=== PATIENT | female | born 1955 | race Caucasian/White ===

== ENCOUNTER 2022-09-28 14:54 | Outpatient (REF) | payer MEDICARE, SELFPAY | END 2022-09-28 14:55 | disposition home or self-care (01) | LOC: HO.LAB 14:54 | PROVIDERS: PCP Internal Medicine; Visit Provider Hospitalist | DX: Z23 Encounter for immunization (principal); J18.9 Pneumonia, unspecified organism; J45.909 Unspecified asthma, uncomplicated; Z91.09 Other allergy status, other than to drugs and biological substances | CPT/HCPCS: 36415; 82785; 86003; 90471; 90677; 99202 ==

== ENCOUNTER 2022-12-22 | Outpatient (REF) | payer MEDICARE, SELFPAY ==
--- NOTE | 2022-12-22 14:15 | PFT_ITS ---
INDICATION: Asthma and pneumonia. SPIROMETRY: The FEV1 to FVC 87% with an FEV1 of 2.69 L which is 103% predicted with an FVC of 3.08 L which is 90% predicted. No significant response to bronchodilators noted. Maximum voluntary ventilation 86% predicted. LUNG VOLUMES: Total lung capacity 124% predicted with residual volume of 165% predicted. DIFFUSION CAPACITY: DLCO of 87% predicted. COMPARISONS: None. INTERPRETATION: No obstructive nor restrictive ventilatory defects have been identified. No significant response to bronchodilators noted. Normal maximum voluntary ventilation. Lung volumes do demonstrate a trend of hyperinflation and significant air trapping, which could be secondary to small airway disease. Diffusion capacity is within normal limits. If asthma is in the differential, methacholine challenge may be helpful in assessing for hyperreactive airways disease. Otherwise, clinical correlation warranted. MD KRISH Cano/MODL / [id number]
== END 2022-12-22 00:01 | disposition home or self-care (01) ==
LOC: HO.RESP
PROVIDERS: PCP Internal Medicine; Visit Provider Hospitalist
DX: J18.9 Pneumonia, unspecified organism (principal)
CPT/HCPCS: 94060; 94727; 94729

== ENCOUNTER → 2023-01-01 09:33 | Outpatient (BNVA) | payer MEDICARE, SELFPAY | PROVIDERS: PCP Internal Medicine; Visit Provider Hospitalist | DX: J45.909 Unspecified asthma, uncomplicated (principal); J18.9 Pneumonia, unspecified organism | CPT/HCPCS: 99212 ==

== ENCOUNTER 2024-11-12 10:04 | Outpatient (REF) | payer MEDICARE, SELFPAY ==
--- OUTSIDE RECORDS SUMMARY | 2024-11-12 11:00 | XMS_ITS | Data Portability ---
Author Organization [facility], Main Office Address [address] [facility] [address] [place] [id number] Care Team Providers Care Roll Tension Tester Name Role Phone EDILIA LIMON OTHER JASEN RODRIGUEZ Dairy Husbandry Worker RONALD MOSELEY Ammonia Print Operator YANIRA JO Primary Care Provider NEENA CHAPIN Process Description Writer VIC TILLEY Shirt Presser Assessment No assessment recorded. Plan of Treatment Reminders Order Date Submit Date Provider Last Modified By Organization Details Last Modified Time Details Appointments FOLLOW UP 2024 01:30P M YANIRA JO MD Not available Not available Not available Lab Hepatitis C IgG Ab, qual, serum 2024 025 ISAIAH [facility] (Centralized Electronic Ordering - All Locations), Patient Can Go To The Location Of Their Choice, [id number] 11/07/2024 15:06:09 lipid panel, serum 2024 025 ISAIAH [facility], [address] [place], [address], 11/07/2024 14:41:46 BMP, serum or plasma 2024 025 ISAIAH [facility], [address] [place], [address], 11/07/2024 14:41:46 CBC w/ auto diff 2024 025 ISAIAH [facility], [address] [place], [address], 11/07/2024 14:41:46 hepatic function panel, serum 2023 024 ISAIAH [facility] (Centralized Electronic Ordering - All Locations), Patient Can Go To The Location Of Their Choice, [id number] 05/12/2024 09:32:38 BMP, serum or plasma 2023 024 ISAIAH [facility] (Centralized Electronic Ordering - All Locations), Patient Can Go To The Location Of Their Choice, [address] 05/12/2024 09:32:38 lipid panel, serum 2023 024 ISAIAH [facility], [address] [place] [address], [facility], [place], [address], 09/19/2023 06:08:53 CBC w/ auto diff 2023 024 ISAIAH [facility], [address] [place] [address], [facility], [place], [address], 09/19/2023 06:08:52 BMP, serum or plasma 2023 024 [facility], [address] [place] [address], [facility], [place], [address], 08/24/2023 11:49:40 TSH, serum or plasma 2023 024 [facility], [address] [place] [address], [facility], [place], [address], 08/24/2023 11:49:40 Referral nutrition ist/dieti laila referral 2024 025 carol [employer], [address] [place], [facility], [place], [address], 11/07/2024 14:52:[address] referral - long-damaris ding tinnitus 2024 025 LANA [facility], [address] [place] [address] [place], [address], 10/03/2024 13:29:56 otolaryng ologist referral - worsening tinnitus 2024 025 [facility] , [address], [address], [place], [address], 10/03/2024 13:24:08 Procedures None recorded. Surgeries None recorded. Imaging MRI, brain + internal auditory canal, w/wo contrast - ringing on the right side of the ear 2024 025 ISAIAH Not available 10/20/2024 09:25:20 US, thyroid 2023 024 [facility] (Ultrasound), [address] [place], [address], 02/04/2024 20:32:55 bone density 2023 024 [facility], [address] [place], [address], 09/27/2023 12:01:28 Medication Orders Zyrtec 10 mg capsule 2024 025 [facility], [address] [place], [address], 10/20/2024 05:01:08 Flonase Allergy Relief 50 mcg/actua tion nasal spray,maura pension 2024 025 [facility], [address] [place], [address], 10/20/2024 05:01:08 Patient TargetsNo targets recorded. Patient Instructions Encounter Date Encounter Id Patient Instructions Last Modified By Organization Details Last Modified Time 08/24/2023 [id number] advance care planning: care instructions Not available 08/24/2023 11:49:39 well visit, over 65: care instructions Not available 08/24/2023 11:49:39 preventing falls : care instructions Not available 08/24/2023 11:49:39 medical record request* [email or web address] Not available 08/24/2023 11:58:12 starting a weigh t loss plan: care instructions Not available 08/24/2023 11:49:44 10/03/2024 [id number] tinnitus: care instructions Not available 10/03/2024 11:00:35 11/07/2024 [id number] advance care planning: care instructions Not available 11/07/2024 14:41:31 Reason for Referral Excellence Manager Referral for Tin nitus long-standing tinnitus Referring Physician: Yanira Jo [facility], Encounter Date: 10/03/2024 Nut Sorter Referral fo r Tinnitus worsening tinnitus Referring Physician: Yanira Jo [facility], Encounter Date: 10/03/2024 Course Instructor/dietitian Refer ral for Obesity caused by energy imbalance Referring Physician: Yanira Jo [facility], Encounter Date: 11/07/2024 Results Created Date Observation Date Name Description Value Unit Range Abnormal Flag Note LastModifiedBy Organization Detail LastModifiedTime 09/18/19 24 09/19/2023 BMP8+ EGFR glucose 109 mg/dL 70-99 above high normal Not Available [facility] ([facility]) [address] [place], [address], 09/19/2023 06:08:51 09/18/19 24 09/19/2023 BMP8+ EGFR BUN 12 mg/dL 8-27 Not Available [facility] ([facility]) [address] [place], [address], 09/19/2023 06:08:51 09/18/19 24 09/19/2023 BMP8+ EGFR creatinine 0.81 mg/dL 0.57-1 .00 Not Available [facility] ([facility]) [address] [place], [address], 09/19/2023 06:08:51 09/18/19 24 09/19/2023 BMP8+ EGFR eGFR 80 mL/mi n/1.7 3 >59 Not Available [facility] ([facility]) [address] [place], [address], 09/19/2023 06:08:51 09/18/19 24 09/19/2023 BMP8+ EGFR BUN/creatini ne ratio 15 12-28 Not Available [facility] ([facility]) [address] [facility], [place], [address], 09/19/2023 06:08:51 09/18/19 24 09/19/2023 BMP8+ EGFR sodium 139 mmol/ L 134-14 4 Not Available [facility] ([facility]) [address] [facility], [place], [address], 09/19/2023 06:08:51 09/18/19 24 09/19/2023 BMP8+ EGFR potassium 4.1 mmol/ L 3.5-5. 2 Not Available [facility] ([facility]) [address] [place], [address], 09/19/2023 06:08:51 09/18/19 24 09/19/2023 BMP8+ EGFR chloride 102 mmol/ L 96-106 Not Available [facility] ([facility]) [address] [facility], [place], [address], 09/19/2023 06:08:51 09/18/19 24 09/19/2023 BMP8+ EGFR carbon dioxide, total 22 mmol/ L 20-29 Not Available [facility] ([facility]) [address] [place], [address], 09/19/2023 06:08:51 09/18/19 24 09/19/2023 BMP8+ EGFR anion gap 15.0 mmol/ L 10.0-1 8.0 Not Available [facility] ([facility]) [address] [place], [address], 09/19/2023 06:08:51 09/18/19 24 09/19/2023 BMP8+ EGFR calcium 9.5 mg/dL 8.7-10 .3 Not Available [facility] ([facility]) [address] [facility], [place], [address], 09/19/2023 06:08:51 09/18/19 24 09/19/2023 CBC WITH DIFFE RENTI AL/PL ATELE T WBC 12.6 x10e3 /uL 3.4-10 .8 above high normal Not Available [facility] ([facility]) [address] [facility], [place], [address], 09/19/2023 06:08:52 09/18/19 24 09/19/2023 CBC WITH DIFFE RENTI AL/PL ATELE T RBC 4.93 x10e6 /uL 3.77-5 .28 Not Available [facility] ([facility]) [address] [facility], [place], [address], 09/19/2023 06:08:52 09/18/19 24 09/19/2023 CBC WITH DIFFE RENTI AL/PL ATELE T hemoglobin 14.5 g/dL 11.1-1 5.9 Not Available [facility] ([facility]) [address] [facility], [place], [address], 09/19/2023 06:08:52 09/18/19 24 09/19/2023 CBC WITH DIFFE RENTI AL/PL ATELE T hematocrit 43.5 % 34.0-4 6.6 Not Available [facility] ([facility]) [address] [facility], [place], [address], 09/19/2023 06:08:52 09/18/19 24 09/19/2023 CBC WITH DIFFE RENTI AL/PL ATELE T MCV 88 fL 79-97 Not Available [facility] ([facility]) [address] [facility], [place], [address], 09/19/2023 06:08:52 03/19/20 24 09/19/2023 CBC WITH DIFFE RENTI AL/PL ATELE T MCH 29.4 pg 26.6-3 3.0 Not Available [facility] ([facility]) [address] [place], [address], 09/19/2023 06:08:52 09/18/19 24 09/19/2023 CBC WITH DIFFE RENTI AL/PL ATELE T MCHC 33.3 g/dL 31.5-3 5.7 Not Available [facility] ([facility]) [address] [place], [address], 09/19/2023 06:08:52 09/18/19 24 09/19/2023 CBC WITH DIFFE RENTI AL/PL ATELE T RDW 12.2 % 11.7-1 5.4 Not Available [facility] ([facility]) [address] [place], [address], 09/19/2023 06:08:52 09/18/19 24 09/19/2023 CBC WITH DIFFE RENTI AL/PL ATELE T platelets 266 x10e3 /uL 150-45 0 Not Available [facility] ([facility]) [address] [place], [address], 09/19/2023 06:08:52 09/18/19 24 09/19/2023 CBC WITH DIFFE RENTI AL/PL ATELE T neutrophils 66 % not estab. Not Available [facility] ([facility]) [address] [place], [address], 09/19/2023 06:08:52 09/18/19 24 09/19/2023 CBC WITH DIFFE RENTI AL/PL ATELE T lymphs 22 % not estab. Not Available [facility] ([facility]) [address] [place], [address], 09/19/2023 06:08:52 09/18/19 24 09/19/2023 CBC WITH DIFFE RENTI AL/PL ATELE T monocytes 8 % not estab. Not Available [facility] ([facility]) [address] [place], [address], 09/19/2023 06:08:52 09/18/19 24 09/19/2023 CBC WITH DIFFE RENTI AL/PL ATELE T eos 2 % not estab. Not Available [facility] ([facility]) [address] [facility], [place], [address], 09/19/2023 06:08:52 09/18/19 24 09/19/2023 CBC WITH DIFFE RENTI AL/PL ATELE T basos 1 % not estab. Not Available [facility] ([facility]) [address] [facility], [place], [address], 09/19/2023 06:08:52 09/18/19 24 09/19/2023 CBC WITH DIFFE RENTI AL/PL ATELE T immature cells FISHER CLAM Not Available [facility] ([facility]) [address] [place], [address], 09/19/2023 06:08:52 09/18/19 24 09/19/2023 CBC WITH DIFFE RENTI AL/PL ATELE T neutrophils (absolute) 8.5 x10e3 /uL 1.4-7. 0 above high normal Not Available [facility] ([facility]) [address] [place], [address], 09/19/2023 06:08:52 09/18/19 24 09/19/2023 CBC WITH DIFFE RENTI AL/PL ATELE T lymphs (absolute) 2.7 x10e3 /uL 0.7-3. 1 Not Available [facility] ([facility]) [address] [place], [address], 09/19/2023 06:08:52 09/18/19 24 09/19/2023 CBC WITH DIFFE RENTI AL/PL ATELE T monocytes(ab solute) 1.0 x10e3 /uL 0.1-0. 9 above high normal Not Available [facility] ([facility]) [address] [facility], [place], [address], 09/19/2023 06:08:52 09/18/19 24 09/19/2023 CBC WITH DIFFE RENTI AL/PL ATELE T eos (absolute) 0.2 x10e3 /uL 0.0-0. 4 Not Available [facility] ([facility]) [address] [facility], [place], [address], 09/19/2023 06:08:52 09/18/19 24 09/19/2023 CBC WITH DIFFE RENTI AL/PL ATELE T baso (absolute) 0.1 x10e3 /uL 0.0-0. 2 Not Available [facility] ([facility]) [address] [facility], [place], [address], 09/19/2023 06:08:52 09/18/19 24 09/19/2023 CBC WITH DIFFE RENTI AL/PL ATELE T immature granulocytes 1 % not estab. Not Available [facility] ([facility]) [address] [facility], [place], [address], 09/19/2023 06:08:52 09/18/19 24 09/19/2023 CBC WITH DIFFE RENTI AL/PL ATELE T immature grans (abs) 0.1 x10e3 /uL 0.0-0. 1 Not Available [facility] ([facility]) [address] [place], [address], 09/19/2023 06:08:52 09/18/19 24 09/19/2023 CBC WITH DIFFE RENTI AL/PL ATELE T NRBC FISHER CLAM Not Available [facility] ([facility]) [address] [facility], [place], [address], 09/19/2023 06:08:52 09/18/19 24 09/19/2023 CBC WITH DIFFE RENTI AL/PL ATELE T hematology comments: FISHER CLAM Not Available [facility] ([facility]) [address] [facility], [place], [address], 09/19/2023 06:08:52 09/18/19 24 09/19/2023 LP+NO N-HDL SHAHID STERO L cholesterol, total 154 mg/dL 100-19 9 Not Available [facility] ([facility]) [address] [facility], [place], [address], 09/19/2023 06:08:53 09/18/19 24 09/19/2023 LP+NO N-HDL SHAHID STERO L triglyceride s 145 mg/dL 0-149 Not Available [facility] ([facility]) [address] [facility], [place], [address], 09/19/2023 06:08:53 09/18/19 24 09/19/2023 LP+NO N-HDL SHAHID STERO L HDL cholesterol 41 mg/dL >39 Not Available [facility] ([facility]) [address] [facility], [place], [address], 09/19/2023 06:08:53 09/18/19 24 09/19/2023 LP+NO N-HDL SHAHID STERO L VLDL cholesterol annabel 26 mg/dL 5-40 Not Available [facility] ([facility]) [address] [facility], [place], [address], 09/19/2023 06:08:53 09/18/19 24 09/19/2023 LP+NO N-HDL SHAHID STERO L LDL chol calc ([facility]) 87 mg/dL 0-99 Not Available [facility] ([facility]) [address] [place], [address], 09/19/2023 06:08:53 09/18/19 24 09/19/2023 LP+NO N-HDL SHAHID STERO L non-HDL cholesterol 113 mg/dL 0-129 Not Available [facility] ([facility]) [address] [facility] [place], [address], 09/19/2023 06:08:53 09/18/19 24 09/19/2023 LP+NO N-HDL SHAHID STERO L comment: FISHER CLAM Not Available [facility] ([facility]) [address] [facility] [place], [address], 09/19/2023 06:08:53 09/18/19 24 09/19/2023 TSH REFLE X TO T4F TSH <0.005 uIU/m L 0.450- 4.500 below low normal Not Available [facility] ([facility]) [address] [facility] [place], [address], 09/19/2023 06:08:53 09/21/19 24 09/22/2023 TSH+F REE T4 TSH <0.005 uIU/m L 0.450- 4.500 below low normal Not Available [facility] ([facility]) [address] [facility] [place], [address], 09/22/2023 08:09:00 09/21/19 24 09/22/2023 TSH+F REE T4 T4,free(dire ct) 1.88 NG/dL 0.82-1 .77 above high normal Not Available [facility] ([facility]) [address] [place], [address], 09/22/2023 08:09:00 09/21/19 24 09/22/2023 CBC WITH DIFFE RENTI AL/PL ATELE T WBC 8.2 x10e3 /uL 3.4-10 .8 Not Available [facility] ([facility]) [address] [facility] [place], [address], 09/22/2023 08:09:01 09/21/19 24 09/22/2023 CBC WITH DIFFE RENTI AL/PL ATELE T RBC 4.59 x10e6 /uL 3.77-5 .28 Not Available [facility] ([facility]) [address] [facility], [place], [address], 09/22/2023 08:09:01 09/21/19 24 09/22/2023 CBC WITH DIFFE RENTI AL/PL ATELE T hemoglobin 13.7 g/dL 11.1-1 5.9 Not Available [facility] ([facility]) [address] [facility], [place], [address], 09/22/2023 08:09:01 09/21/19 24 09/22/2023 CBC WITH DIFFE RENTI AL/PL ATELE T hematocrit 40.1 % 34.0-4 6.6 Not Available [facility] ([facility]) [address] [facility], [place], [address], 09/22/2023 08:09:01 09/21/19 24 09/22/2023 CBC WITH DIFFE RENTI AL/PL ATELE T MCV 87 fL 79-97 Not Available [facility] ([facility]) [address] [facility], [place], [address], 09/22/2023 08:09:01 09/21/19 24 09/22/2023 CBC WITH DIFFE RENTI AL/PL ATELE T MCH 29.8 pg 26.6-3 3.0 Not Available [facility] ([facility]) [address] [facility], [place], [address], 09/22/2023 08:09:01 09/21/19 24 09/22/2023 CBC WITH DIFFE RENTI AL/PL ATELE T MCHC 34.2 g/dL 31.5-3 5.7 Not Available [facility] ([facility]) [address] [facility], [place], [address], 09/22/2023 08:09:01 09/21/19 24 09/22/2023 CBC WITH DIFFE RENTI AL/PL ATELE T RDW 11.9 % 11.7-1 5.4 Not Available [facility] ([facility]) [address], [place], [address], 09/22/2023 08:09:01 09/21/19 24 09/22/2023 CBC WITH DIFFE RENTI AL/PL ATELE T platelets 276 x10e3 /uL 150-45 0 Not Available [facility] ([facility]) [address], [place], [address], 09/22/2023 08:09:01 09/21/19 24 09/22/2023 CBC WITH DIFFE RENTI AL/PL ATELE T neutrophils 53 % not estab. Not Available [facility] ([facility]) [address] [facility], [place], [address], 09/22/2023 08:09:01 09/21/19 24 09/22/2023 CBC WITH DIFFE RENTI AL/PL ATELE T lymphs 35 % not estab. Not Available [facility] ([facility]) [address] [facility], [place], [address], 09/22/2023 08:09:01 09/21/19 24 09/22/2023 CBC WITH DIFFE RENTI AL/PL ATELE T monocytes 8 % not estab. Not Available [facility] ([facility]) [address] [facility], [place], [address], 09/22/2023 08:09:01 09/21/19 24 09/22/2023 CBC WITH DIFFE RENTI AL/PL ATELE T eos 2 % not estab. Not Available [facility] ([facility]) [address] [facility], [place], [address], 09/22/2023 08:09:01 09/21/19 24 09/22/2023 CBC WITH DIFFE RENTI AL/PL ATELE T basos 1 % not estab. Not Available [facility] ([facility]) [address] [facility], [place], [address], 09/22/2023 08:09:01 09/21/19 24 09/22/2023 CBC WITH DIFFE RENTI AL/PL ATELE T immature cells FISHER CLAM Not Available [facility] ([facility]) [address] [place], [address], 09/22/2023 08:09:01 09/21/19 24 09/22/2023 CBC WITH DIFFE RENTI AL/PL ATELE T neutrophils (absolute) 4.3 x10e3 /uL 1.4-7. 0 Not Available [facility] ([facility]) [address] [place], [address], 09/22/2023 08:09:01 09/21/19 24 09/22/2023 CBC WITH DIFFE RENTI AL/PL ATELE T lymphs (absolute) 2.8 x10e3 /uL 0.7-3. 1 Not Available [facility] ([facility]) [address] [place], [address], 09/22/2023 08:09:01 09/21/19 24 09/22/2023 CBC WITH DIFFE RENTI AL/PL ATELE T monocytes(ab solute) 0.7 x10e3 /uL 0.1-0. 9 Not Available [facility] ([facility]) [address] [place], [address], 09/22/2023 08:09:01 09/21/19 24 09/22/2023 CBC WITH DIFFE RENTI AL/PL ATELE T eos (absolute) 0.2 x10e3 /uL 0.0-0. 4 Not Available [facility] ([facility]) [address] [place], [address], 09/22/2023 08:09:01 09/21/19 24 09/22/2023 CBC WITH DIFFE RENTI AL/PL ATELE T baso (absolute) 0.1 x10e3 /uL 0.0-0. 2 Not Available [facility] ([facility]) [address] [place], [address], 09/22/2023 08:09:01 09/21/19 24 09/22/2023 CBC WITH DIFFE RENTI AL/PL ATELE T immature granulocytes 1 % not estab. Not Available [facility] ([facility]) [address] [facility], [place], [address], 09/22/2023 08:09:01 09/21/19 24 09/22/2023 CBC WITH DIFFE RENTI AL/PL ATELE T immature grans (abs) 0.1 x10e3 /uL 0.0-0. 1 Not Available [facility] ([facility]) [address] [facility], [place], [address], 09/22/2023 08:09:01 09/21/19 24 09/22/2023 CBC WITH DIFFE RENTI AL/PL ATELE T NRBC FISHER CLAM Not Available [facility] ([facility]) [address] [facility], [place], [address], 09/22/2023 08:09:01 09/21/19 24 09/22/2023 CBC WITH DIFFE RENTI AL/PL ATELE T hematology comments: FISHER CLAM Not Available [facility] ([facility]) [address] [facility], [place], [address], 09/22/2023 08:09:01 09/21/19 24 09/22/2023 HEMOG LOBIN A1C hemoglobin A1C 5.4 % 4.8-5. 6 Predi abete s: 5.7 - 6.4 Diabe jessica: >6.4 Glyce rodrigo contr ol for adult s with diabe jessica: <7.0 Not Available [facility] ([facility]) [address] [facility], [place], [address], 09/22/2023 08:09:01 09/21/19 24 09/22/2023 THYRO ID PEROX IDASE (TPO) AB thyroid peroxidase (tpo) Ab >600 IU/mL 0-34 above high normal Not Available [facility] ([facility]) [address] [place], [address], 09/22/2023 08:09:02 09/21/19 24 09/22/2023 TRIIO DOTHY BENJAMIN E (T3), FREE triiodothyro nine (T3), free 4.8 pg/mL 2.0-4. 4 above high normal Not Available [facility] ([facility]) [address] [place], [address], 09/22/2023 08:09:02 11/01/19 24 11/02/2023 TSH+F REE T4 TSH <0.005 uIU/m L 0.450- 4.500 below low normal Not Available [facility] ([facility]) [address] [place], [address], 11/02/2023 08:09:26 11/01/19 24 11/02/2023 TSH+F REE T4 T4,free(dire ct) 1.66 NG/dL 0.82-1 .77 Not Available [facility] ([facility]) [address] [place], [address], 11/02/2023 08:09:26 11/01/1911/02/2023 THYRO GLOBU ZELDA ANTIB JOSE thyroglobuli n antibody 5.9 IU/mL 0.0-0. 9 above high normal Thyro globu zelda Antib jose measu red by Mary Trevinot er Metho dolog y It shoul d be noted that the prese nce of thyro globu zelda antib odies may not be patho genic nor diagn ostic , espec ially at very low level s. The assay presley actur er has found that four perce nt of indiv idual s witho ut evide nce of thyro id disea se or autoi mmuni ty will have posit dean TgAb level s up to 4 IU/mL . Not Available [facility] ([facility]) [address] [place], [address], 11/02/2023 08:09:27 11/01/19 24 11/02/2023 THYRO ID PEROX IDASE (TPO) AB thyroid peroxidase (tpo) Ab 584 IU/mL 0-34 above high normal Not Available [facility] ([facility]) [address] [place], [address], 11/02/2023 08:09:28 11/01/19 24 11/06/2023 HEPAT IC FUNCT ION PANEL (7) protein, total 6.8 g/dL 6.0-8. 5 Not Available [facility] ([facility]) [address] [place], [address], 11/06/2023 08:08:42 11/01/19 24 11/06/2023 HEPAT IC FUNCT ION PANEL (7) albumin 4.3 g/dL 3.9-4. 9 Not Available [facility] ([facility]) [address] [place], [address], 11/06/2023 08:08:42 11/01/19 24 11/06/2023 HEPAT IC FUNCT ION PANEL (7) bilirubin, total 0.3 mg/dL 0.0-1. 2 Not Available [facility] ([facility]) [address] [place], [address], 11/06/2023 08:08:42 11/01/19 24 11/06/2023 HEPAT IC FUNCT ION PANEL (7) bilirubin, direct <0.10 mg/dL 0.00-0 .40 Not Available [facility] ([facility]) [address] [place], [address], 11/06/2023 08:08:42 11/01/19 24 11/06/2023 HEPAT IC FUNCT ION PANEL (7) alkaline phosphatase 82 IU/L 44-121 Not Available [facility] ([facility]) [address] [place], [address], 11/06/2023 08:08:42 11/01/19 24 11/06/2023 HEPAT IC FUNCT ION PANEL (7) AST (SGOT) 19 IU/L 0-40 Not Available [facility] ([facility]) [address] [place], [address], 11/06/2023 08:08:42 11/01/19 24 11/06/2023 HEPAT IC FUNCT ION PANEL (7) ALT (SGPT) 22 IU/L 0-32 Not Available [facility] ([facility]) [address] [facility], [place], [address], 11/06/2023 08:08:42 11/01/19 24 11/05/2023 ROSI EN AUTHO RIZAT ION written authorizatio n Stephon t Rosi en Autho rizat ion Recei sloan. Autho rizat ion recei sloan from JAMES Rich for Link Reque st on 11-04 Logge d by Kurt Paredes Not Available [facility] ([facility]) [address] [facility], [place], [address], 11/06/2023 08:08:42 12/04/19 24 12/05/2023 TSH+F REE T4 TSH 0.046 uIU/m L 0.450- 4.500 below low normal Not Available [facility] ([facility]) [address] [place], [address], 12/05/2023 06:21:35 12/04/19 24 12/05/2023 TSH+F REE T4 T4,free(dire ct) 1.27 NG/dL 0.82-1 .77 Not Available [facility] ([facility]) [address] [place], [address], 12/05/2023 06:21:35 01/17/20 24 01/18/2024 TSH+F REE T4 TSH 1.180 uIU/m L 0.450- 4.500 Not Available [facility] ([facility]) [address] [place], [address], 01/18/2024 08:08:44 01/17/2001/18/2024 TSH+F REE T4 T4,free(dire ct) 1.04 NG/dL 0.82-1 .77 Not Available [facility] ([facility]) [address] [place], [address], 01/18/2024 08:08:44 04/25/2004/26/2024 TSH+F REE T4 TSH 3.360 uIU/m L 0.450- 4.500 normal Not Available [facility] ([facility]) [address] [place], [address], 04/26/2024 06:09:20 04/25/2004/26/2024 TSH+F REE T4 T4,free(dire ct) 1.19 NG/dL 0.82-1 .77 normal Not Available [facility] ([facility]) [address] [place], [address], 04/26/2024 06:09:20 04/25/2004/26/2024 HEPAT IC FUNCT ION PANEL (7) protein, total 6.8 g/dL 6.0-8. 5 normal Not Available [facility] ([facility]) [address] [place], [address], 04/26/2024 06:09:21 04/25/2004/26/2024 HEPAT IC FUNCT ION PANEL (7) albumin 4.2 g/dL 3.9-4. 9 normal Not Available [facility] ([facility]) [address] [place], [address], 04/26/2024 06:09:21 04/25/2004/26/2024 HEPAT IC FUNCT ION PANEL (7) bilirubin, total 0.3 mg/dL 0.0-1. 2 normal Not Available [facility] ([facility]) [address] [place], [address], 04/26/2024 06:09:21 04/25/2004/26/2024 HEPAT IC FUNCT ION PANEL (7) bilirubin, direct <0.10 mg/dL 0.00-0 .40 Anatoly ified by terrie schmitt madhuri sis Not Available [facility] ([facility]) [address] [place], [address], 04/26/2024 06:09:21 04/25/2004/26/2024 HEPAT IC FUNCT ION PANEL (7) alkaline phosphatase 103 IU/L 44-121 normal Not Available [facility] ([facility]) [address] [place], [address], 04/26/2024 06:09:21 04/25/20 24 04/26/2024 HEPAT IC FUNCT ION PANEL (7) AST (SGOT) 25 IU/L 0-40 normal Not Available [facility] ([facility]) [address] [place], [address], 04/26/2024 06:09:21 04/25/2004/26/2024 HEPAT IC FUNCT ION PANEL (7) ALT (SGPT) 26 IU/L 0-32 normal Not Available [facility] ([facility]) [address] [place], [address], 04/26/2024 06:09:21 09/27/19 24 09/18/2023 DEXA, axial skele ton Name:Jaelyn Acevedo t ID: [id number] Age:68 years Sex:Fe male Ethnic ity: Date of : 958 Reason : Z78.0 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 Fractu re probab ility calcul ated for an untrea brigida patien t. Fractu re probab ility may be lower if the patien t has receiv ed treatm ent. Major Osteop orotic Fractu re: 15% Hip Fractu re: 1.3% RATE OF CHANGE (SPINE ): BMD values have decrea sed7.5 % from previo us BMD values have decrea sed 12.3% from baseli ne RATE OF CHANGE (TOTAL HIP): BMD values have decrea sed 10.0% from previo us BMD values have decrea sed 14.0% from baseli ne RATE OF CHANGE (FEMOR AL NECK): BMD values have decrea sed 5.6% from previo us BMD values have decrea sed 16.4% from baseli ne Impres ryan: The patien t has osteop enia as determ ined by WHO criter ia. Based on the result s of the patien t's bone densit y assess ment, the risk of future fractu re increa ses approx imatel y two fold for each 1.0 SD decrea se in T-scor e. Howeve r, low BMD is not the only risk factor for a future fragil ity fractu re. Other clinic al risk factor s for osteop orotic fractu re should be consid ered in ascert aining this patien t's future fractu re risk includ ing the patien t's age, previo us osteop orotic (fragi lity) fractu re, estrog en defici ency/h ypogon adism, risk of fallin g, use of medica tions implic ated in bone loss (gluco cortic oids), family histor y of osteop orotic fractu re, diseas es and condit ions associ ated with bone loss, low body weight , smokin g, high bone turnov er, etc. Combin ing low BMD and other clinic al risk factor s result in a more precis e assess ment of future fractu re risk. Second andrez causes for osteop orosis , such as osteom alacia , other metabo lic bone disord ers, and diseas es and condit ions that may contri bute to accele rated bone loss may have to be consid ered depend ing on the clinic al situat ion. A repeat bone densit y assess ment should be consid ered in two years. WSN: [id number] Orderi ng Physic whitney: Kashif Marshall ie Dictat ed By: Steven Massey rd, Jr, MD Dictat ed Date/T candido: 11:55 a Review ed By: Shilpa black Jr, MD, Steven Hawk Signed By: Steven Massey rd, Jr, MD Signed Date/T candido: 11:55 am Transc ribed By: ULISES Transc ribed Date/T candido: 11:53 am Patien t Class: Outpat ient [facility] (Outpt Imaging) [address], [place], [address], 09/27/2023 17:10:52 09/27/19 24 09/27/2023 bone densi ty No observ ation record ed. [facility] [address] [facility], [place], [address], 09/27/2023 12:36:54 02/04/20 24 02/04/2024 US, head + neck, soft tissu e US Soft Tissue Head/N angela Reason : E05.90 THYROT OXICOS IS; Clinic al Questi on(s): Other: COMPAR GRISEL: CT chest of 2021 FINDIN GS: RIGHT THYROI D LOBE: 5.3 x 1.7 x 1.6 cm, volume 7.3 cc. Diffus fallon hetero geneou s echote xture. Normal parenc hymal vascul arity. Scatte red subcen timete r nodule s which do not meet TI-RAD S criter ia for imagin g follow -up. LEFT THYROI D LOBE: 4.4 x 1.5 x 1.6 cm, volume 5.5 cc. Diffus fallon hetero geneou s echote xture. Normal parenc hymal vascul arity. Scatte red subcen timete r nodule s which do not meet TI-RAD S criter ia for imagin g follow -up. ISTHMU S: Thickn ess: 0.7 cm. IMPRES RYAN: Scatte red subcen timete r nodule s which do not meet TI-RAD S criter ia for imagin g follow -up. Thyroi d gland otherw ise hetero geneou s withou t suspic ious featur es. Clinic al correl ation to exclud e underl libia thyroi ditis is advise d. WSN: [id number] Orderi ng Physic whitney: Kashif Marshall ie Dictat ed By: Regla Ness MD Dictat ed Date/T candido: 3:36 pm Review ed By: Regla Ness MD Signed By: Regla Ness MD Signed Date/T candido: 3:36 pm Transc ribed By: ULISES Transc ribed Date/T candido: 3:34 pm Patien t Class: Outpat ient [facility] (Outpt Imaging) [address] , [place], [address], 02/07/2024 10:10:49 04/25/2004/25/2024 MAMMO , scree katey, digit al, bilat eral No observ ation record ed. [facility] [address] [facility], [place], [address], 04/27/2024 15:42:53 04/25/20 24 04/25/2024 MAMMO , scree katey, digit al, bilat eral PROCED URE: MM Digita l Mammo Screen ing INDICA TION: Screen ing for breast cancer . COMPAR GRISEL: Multip le priors , most recent ly 2022 TECHNI QUE: Full-f ield digita l CC and MLO 3D tomosy nthesi s images of both breast s were acquir ed. Comput er-aid ed detect ion (CAD) was utiliz ed in the interp retati on of this study. DENSIT Y: There are scatte red areas of fibrog landul ar densit y. FINDIN GS: No suspic ious masses , suspic ious microc alcifi cation s, or areas of jazzy ectura l distor tion are seen in either breast to sugges t malign justus. IMPRES RYAN: No mammog raphic eviden ce of malign justus. RECOMM ENDATI ON: Annual mammog raphic screen ing BI-RAD S: 1 (Negat dean) Lay letter mailed to kristina schmitt WSN: [id number] Orderi ng Physic whitney: Kashif Marshall ie Dictat ed By: Cristofer Renee MD Dictat ed Date/T candido: 1:19 pm Review ed By: Cristofer Renee MD Signed By: Cristofer Renee MD Signed Date/T candido: 1:19 pm Transc ribed By: KINSEYB Transc riptio n Date/T candido: 1:16 pm Birads : Kristina schmitt Class: Outpat ient [facility] (Outpt Imaging) [address], [place], [address], 04/25/2024 13:40:56 10/21/19 25 10/15/2024 MRI, brain + inter nal audit ory canal , w/wo contr ast No observ ation record ed. [facility] Maharaj Mri [address], [place], [address], 10/21/2024 10:55:35 Result Notes None recorded. Problems Name Problem SNOMED Code Status Onset Date Resolution Date Notes Provider Name and Address Organization Details Recorded Time Acute pharyngi tis [id number] Completed 201101/13/2014 IMPRESSI ON: RAPID STREP NEG, WILL SEND OUT AND INFORM PT IF POS. ADVISED RE REST, FLUIDS, WARM SALT WATER GARGLES, TEA W/HONEY, OTC ANALGESI CS. CALL FOR WORSENIN G/PRN.; RECORDED 02/07/20 12 1:13PM BY FLORECITA DEMPSEY ON/ADDEN DUM Hanane Watson MA [facility] 8 13:38:35 Acute sinusiti s [id number] Completed 201101/13/2014 RECORDED 06/14/20 12 8:47AM BY FEMI TY MA, ANNOTATI ON/ADDEN DUM Hanane Watson [facility] 8 13:38:24 Hemangio courtney [id number] Completed 201101/13/2014 RECORDED 06/14/20 12 8:48AM BY FEMI TY MA, ANNOTATI ON/ADDEN DUM Nicole Rome PA-C [address], [place], [address] , [facility] 6 14:12:35 Patient status finding [id number] Completed 201206/08/2014 RECORDED 02/07/20 13 10:03AM BY HANANE WATSON, OFFICE VISIT Nicole Peter PA-C [address], [place], [address] , [facility] 6 14:12:35 Patient status finding [id number] Completed 201201/13/2014 RECORDED 07/09/19 13 9:25AM BY FLORECITA DEMPSEY ON/ADDEN DUM Nicole Peter PA-C [address], [place], [address] , [facility] 6 14:12:35 Intrinsi c asthma [id number] Completed 200901/13/2014 RECORDED 04/22/20 10 4:09PM BY ROSY GARCIA MA, ANNOTATI ON/ADDEN DUM Nicole Peter PA-C [address], [place], [address] , [facility] 6 14:12:35 Asthma 230597802 Completed 200901/13/2014 RECORDED 04/22/20 10 4:09PM BY ROSY GARCIA MA, ANNOTATI ON/ADDEN DUM Liam zuñiga, [facility] 0 11:43:05 Screenin g for malignan t neoplasm of breast Completed 200901/13/2014 DATE: 04/22/20 10; RECORDED 02/07/20 12 1:13PM BY FLORECITA DEMPSEY ON/ADDEN DUM Liam Alexa dyeo zara [facility] 8 14:12:02 Screenin g for malignan t neoplasm of breast Completed 201208/08/2017 RECORDED 02/07/20 13 9:55AM BY HANANE WATSON, OFFICE VISIT Liam Alexa soteloenzramsey zuñiga [facility] 8 14:12:02 Screenin g for malignan t neoplasm of cervix Completed 201101/13/2014 RECORDED 02/07/20 12 1:13PM BY FLORECITA DEMPSEY ON/ADDEN DUM Nicole Peter PA-C [address] [facility] [address], [place], [address] , [facility] 6 14:12:35 Conjunct ivitis 0321661 Completed 201201/13/2014 IMPRESSI ON: HAS H/O OCULAR ROSACEA, START POLYTRIM BUT ADVISE TO CALL OPTHALMO LOGIST IF NOT IMPROVIN G OR WORSENIN G OVER THE NEXT FEW DAYS.; RECORDED 02/07/20 13 9:51AM BY FLORECITA DEMPSEY ON/ADDEN DUM Nicole Peter PA-C [address] [facility] [facility] [address], [place], [address] , [facility] 6 14:12:35 Cough 22691738 Completed 201201/13/2014 IMPRESSI ON: SUSPECT PNEUMONI A WITH FEVER AND CRACKLES . MUCINEX. WE WILL CALL HER IN 5 DAYS TO SEE HOW SHE IS DOING AND ORDER CXR IF NOT IMPROVIN G; RECORDED 07/09/19 13 9:25AM BY FLORECITA DEMPSEY ON/JVEN WESTON Peter PA-C [address] [facility] [facility] [address], [place], [address] , [facility] 6 14:12:35 Elevated blood-pr essure reading without diagnosi s of hyperten ryan [id number] Completed 201208/22/2019 RECORDED 02/07/20 13 9:55AM BY HANANE WATSON, OFFICE VISIT Liam zuñiga, [facility] 0 11:43:11 Enthesop athy of knee [id number] Completed 200701/13/2014 IMPRESSI ON: DX WITH OA, INJECTIO NS REALLY HELPED; RECORDED 07/01/20 08 7:26AM BY FLORECITA BROWN ON/ALYX Peter PA-C [address] [facility] [address], [place], [address] , [facility] 6 14:12:35 Gastroes ophageal reflux disease 977438537 Completed 201208/22/2019 RECORDED 02/07/20 13 9:55AM BY HANANE WATSON, OFFICE VISIT Liam zuñiga, [facility] 0 11:43:36 Extrinsi c asthma with asthma attack Completed 201208/08/2017 IMPRESSI ON: STABLE OFF INHALERS .; RECORDED 02/07/20 13 9:55AM BY HANANE WATSON, OFFICE VISIT Liam zuñiga [facility] 8 14:11:54 Malaise and fatigue [id number] Completed 201101/13/2014 RECORDED 06/14/20 12 8:48AM BY FEMI TY MA, FLORECITA ON/ALYX Peter PA-C [address] [facility] [facility] [address], [place], [address] , [facility] 6 14:12:35 Influenz a vaccine needed [id number] 06 Completed 201201/13/2014 RECORDED 06/14/20 13 10:28AM BY HANANE WATSON, NURSE VISIT Nicole Peter PA-C [address], [place], [address] , [facility] 6 14:12:35 Adult health examinat ion Completed 201101/13/2014 IMPRESSI ON: PAP, MAMMO AND COLONOSC OPY ARE UTD, PT IS EXERCISI NG, WOULD LIKE TO WALK MORE IF FEET DID NOT HURT,; RECORDED 06/14/20 12 8:48AM BY FEMI TY MA, FLORECITA ON/ADDEN DUM Nicole Peter PA-C [address], [place], [address] , [facility] 6 14:12:35 Adult health examinat ion Completed 201206/08/2014 IMPRESSI ON: PAP, MAMMO AND COLONOSC OPY UTD, IS ON EXERCISE AND WEIGHT LOSS EATING PLAN, LOST 3.BS, DOIGN WELL; RECORDED 02/07/20 13 10:35AM BY LIAM Rogers MD, OFFICE VISIT Nicole Peter PA-C [address], [place], [address] , [facility] 6 14:12:35 General examinat ion of patient Completed 200701/13/2014 IMPRESSI ON: WILL CHECK ON LAST TETANUS IN SCHOOL RECORDS, THINKS IT IS LESS THAN 10 YEARS, WILL GET FLU SHOT, CONTINUE EXERCISE AND SET UP MAMMO, PT WILL SET UP COLONOSC OPY WHEN TURNS 50; RECORDED 05/29/20 08 3:47PM BY FLORECITA DEMPSEY ON/ADDEN DUM Nicole Peter PA-C [address], [place], [address] , [facility] 6 14:12:35 Calcanea l spur [id number] Completed 201101/13/2014 RECORDED 06/14/20 12 8:47AM BY FEMI TY MA, FLORECITA ON/ADDEN DUM Nicole Peter PA-C [address], [place], [address] , [facility] 6 14:12:35 Pure hypercho lesterol emia [id number] Completed 201208/08/2017 IMPRESSI ON: CHECK FASTING NO VALUE ON FILE; RECORDED 02/07/20 13 9:55AM BY HANANE WATSON, OFFICE VISIT [facility] 8 14:11:59 Procedur e on joint Completed 201206/08/2014 IMPRESSI ON: DOING WELL NO PAIN; RECORDED 02/07/20 13 10:36AM BY LIAM Rogers MD, OFFICE VISIT Nicole Peter PA-C [address] [address], [place], [address] , [facility] 6 14:12:35 Pain in eye 69298781 Completed 201101/13/2014 RECORDED 02/07/20 12 1:13PM BY HANANE WATSON, ANNOTATI ON/ADDEN DUM Nicole Peter PA-C [address] [address], [place], [address] , [facility] 6 14:12:35 Osteoart hritis 209220005 Completed 201208/24/2023 IMPRESSI ON: HX OF KNEE REPLACEM ENTS, NOW IN THUMBS; RECORDED 02/07/20 13 10:36AM BY LIAM Rogers MD, OFFICE VISIT YANIRA JO MD [address] [address], [place], [address] , [facility] 4 10:40:06 Palpitat ions 83277107 Completed 201208/22/2019 IMPRESSI ON: JSUT STARTED THIS AFTERNOO N, NO DIZZINES S AND COME AND GO, NO CP OR SYNCOPE, BP A BIT UP BUT PT APPEARS ANXIOUS, CHECK LABS, REST, HYDRATE, BP A BIT UP, PT TO CHECK AT OTHER PLACES AND RETURN 6 WEEEKS FOR FOLLWOUP BP; RECORDED 02/07/20 13 9:55AM BY HANANE WATSON, OFFICE VISIT LiamSen zuñiga [facility] 0 11:43:17 William [id number] Active 2012 Valenc[place]rook Enriquez zara, [facility] 0 15:44:34 Chronic sinusiti s 09456240 Completed 201201/13/2014 IMPRESSI ON: ENCOURAG E REST AND HYDRATIO N. RTC IF PERSISTE NT OR WORSENIN G SYMPTOMS .; RECORDED 02/07/20 13 9:51AM BY FLORECITA DEMPSEY ON/ALYX Peter PA-C [address], [place], [address] , [facility] 6 14:12:35 Acute maxillar y sinusiti s 40896962 Completed 200701/13/2014 IMPRESSI ON: NO RESOLUTI ON AFTER 3 WEEKS, START AMOX, HOT SHOWERS; RECORDED 07/01/20 08 7:26AM BY FLORECITA BROWN ON/ALYX ALTAMIRANOC [address], [place], [address] , [facility] 6 14:12:35 Screenin g for malignan t neoplasm of colon Completed 201101/13/2014 RECORDED 02/07/20 12 1:13PM BY FLORECITA DEMPSEY ON/ALYX ALTAMIRANOC [address], [place], [address] , [facility] 6 14:12:35 Administ ration of diphther ia and tetanus vaccine Completed 201101/13/2014 RECORDED 06/14/20 12 8:48AM BY FEMI TY MA, FLORECITA ON/ADDEN DUM Nicole ALTAMIRANOC [address], [place], [address] , [facility] 6 14:12:35 Acute pharyngi tis [id number] Completed 201102/09/2014 IMPRESSI ON: RAPID STREP NEG, WILL SEND OUT AND INFORM PT IF POS. ADVISED RE REST, FLUIDS, WARM SALT WATER GARGLES, TEA W/HONEY, OTC ANALGESI CS. CALL FOR WORSENIN G/PRN.; RECORDED 02/07/20 12 1:13PM BY FLORECITA DEMPSEY ON/ADDEN DUM COURTNEY Dempsey, [facility] 8 13:38:35 Acute sinusiti s 48198701 Completed 201102/09/2014 RECORDED 06/14/20 12 8:47AM BY FEMI TY MA, FLORECITA ON/ADDEN DUM COURTNEY Dempsey, [facility] 8 13:38:24 Hemangio nc [id number] Completed 201102/09/2014 RECORDED 06/14/20 12 8:48AM BY FEMI TY MA, FLORECITA ON/ADDEN DUM Nicole Peter PA-C [address], [place], [address] , [facility] 6 14:12:35 Intrinsi c asthma [id number] Completed 200902/09/2014 RECORDED 04/22/20 10 4:09PM BY ROSY GARCIA MA, FLORECITA ON/ADDEN DUM Nicole Peter PA-C [address], [place], [address] , [facility] 6 14:12:35 Asthma 521279660 Completed 200902/09/2014 RECORDED 04/22/20 10 4:09PM BY ROSY GARCIA MA, FLORECITA ON/ADDEN DUM Liam zuñiga, [facility] 0 11:43:05 Screenin g for malignan t neoplasm of breast Completed 200902/09/2014 DATE: 04/22/20 10; RECORDED 02/07/20 12 1:13PM BY FLORECITA DEMPSEY ON/ADDEN DUM [facility] 8 14:12:02 Screenin g for malignan t neoplasm of cervix Completed 201102/09/2014 RECORDED 02/07/20 12 1:13PM BY FLORECITA DEMPSEY ON/ADDEN DUM Nicole ALTAMIRANOC [address], [place], [address] , [facility] 6 14:12:35 Conjunct ivitis [id number] Completed 201202/09/2014 IMPRESSI ON: HAS H/O OCULAR ROSACEA, START POLYTRIM BUT ADVISE TO CALL OPTHALMO LOGIST IF NOT IMPROVIN G OR WORSENIN G OVER THE NEXT FEW DAYS.; RECORDED 02/07/20 13 9:51AM BY FLORECITA DEMPSEY ON/ADDEN DUM Nicole ALTAMIRANOC [address] [facility] [address], [place], [address] , [facility] 6 14:12:35 Cough 82640727 Completed 201202/09/2014 IMPRESSI ON: SUSPECT PNEUMONI A WITH FEVER AND CRACKLES . MUCINEX. WE WILL CALL HER IN 5 DAYS TO SEE HOW SHE IS DOING AND ORDER CXR IF NOT IMPROVIN G; RECORDED 07/09/19 13 9:25AM BY FLORECITA DEMPSEY ON/JVEN DUM iNcole ALTAMIRANOC [address], [place], [address] , [facility] 6 14:12:35 Enthesop athy of knee 11076285 Completed 200702/09/2014 IMPRESSI ON: DX WITH OA, INJECTIO NS REALLY HELPED; RECORDED 07/01/20 08 7:26AM BY FLORECITA BROWN ON/ALYX ALTAMIRANOC [address], [place], [address] , [facility] 6 14:12:35 Malaise and fatigue 636275311 Completed 201102/09/2014 RECORDED 06/14/20 12 8:48AM BY FEMI TY MA, FLORECITA ON/ADDEN WESTON ALTAMIRANOC [address], [place], [address] , [facility] 6 14:12:35 Influenz a vaccine needed [id number] 06 Completed 201202/09/2014 RECORDED 06/14/20 13 10:28AM BY HANANE WATSON, NURSE VISIT Nicole Peter PA-C [address] [facility] [address], [place], [address] , [facility] 6 14:12:35 Adult health examinat ion Completed 201102/09/2014 IMPRESSI ON: PAP, MAMMO AND COLONOSC OPY ARE UTD, PT IS EXERCISI NG, WOULD LIKE TO WALK MORE IF FEET DID NOT HURT,; RECORDED 06/14/20 12 8:48AM BY FEMI TY MA, FLORECITA ON/ALYX ALTAMIRANOC [address] [facility] [address], [place], [address] , [facility] 6 14:12:35 General examinat ion of patient Completed 200702/09/2014 IMPRESSI ON: WILL CHECK ON LAST TETANUS IN SCHOOL RECORDS, THINKS IT IS LESS THAN 10 YEARS, WILL GET FLU SHOT, CONTINUE EXERCISE AND SET UP MAMMO, PT WILL SET UP COLONOSC OPY WHEN TURNS 50; RECORDED 05/29/20 08 3:47PM BY FLORECITA DEMPSEY ON/ALYX Peter PA-C [address] [facility] [address], [place], [address] , [facility] 6 14:12:35 Calcanea l spur [id number] Completed 201102/09/2014 RECORDED 06/14/20 12 8:47AM BY FEMI TY MA, FLORECITA ON/ADDEN DUM Nicole Peter PA-C [address] [facility] [address], [place], [address] , [facility] 6 14:12:35 Pain in eye 16665364 Completed 201102/09/2014 RECORDED 02/07/20 12 1:13PM BY FLORECITA DEMPSEY ON/ADDEN DUM Nicole Peter PA-C [address] [facility] [address], [place], [address] , [facility] 6 14:12:35 Chronic sinusiti s 39961398 Completed 201202/09/2014 IMPRESSI ON: ENCOURAG E REST AND HYDRATIO N. RTC IF PERSISTE NT OR WORSENIN G SYMPTOMS .; RECORDED 02/07/20 13 9:51AM BY FLORECITA DEMPSEY ON/ADDEN DUM Nicole FARLEY-C [address] [facility] [address], [place], [address] , [facility] 6 14:12:35 Acute maxillar y sinusiti s 34639444 Completed 200702/09/2014 IMPRESSI ON: NO RESOLUTI ON AFTER 3 WEEKS, START AMOX, HOT SHOWERS; RECORDED 07/01/20 08 7:26AM BY FLORECITA BROWN ON/ALYX DUM Nicole FARLEY-C [address] [facility] [address], [place], [address] , [facility] 6 14:12:35 Screenin g for malignan t neoplasm of colon Completed 201102/09/2014 RECORDED 02/07/20 12 1:13PM BY FLORECITA DEMPSEY ON/ADDEN DUM Nicole Peter PA-C [address] [facility] [address], [place], [address] , [facility] 6 14:12:35 Administ ration of diphther ia and tetanus vaccine Completed 201102/09/2014 RECORDED 06/14/20 12 8:48AM BY FEMI TY MA, ANNOTATI ON/ALYX Peter PA-C [address] [facility] [address], [place], [address] , [facility] 6 14:12:35 Asthma 170026513 Completed 08/22/2019 Liam Glading-Di itzel zara [facility] 0 11:43:05 Stomach cramps 70157708 Completed 08/08/2017 COURTNEY Dempsey [facility] 8 13:38:49 Acquired trigger finger 8204048 Completed 08/22/2019 [facility] 0 11:43:38 Acute pharyngi tis 855597571 Completed 08/08/2017 COURTNEY Dempsey [facility] 8 13:38:35 Viral conjunct ivitis 29001731 Completed 08/08/2017 COURTNEY Dempsey [facility] 8 13:38:46 Viral disease 56795352 Completed 08/08/2017 COURTNEY Dempsey [facility] 8 13:38:38 Acute sinusiti s 53702399 Completed 08/08/2017 COURTNEY Dempsey [facility] 8 13:38:24 Otitis media 91634908 Completed 08/08/2017 COURTNEY Dempsey [facility] 8 13:38:53 Vertigo 686200315 Completed 08/22/2019 Liam Glading-Rylie dyeo zara [facility] 0 11:43:26 Verruca plantari s 12882234 Completed 08/22/2019 Liam Glading-Rylie soteloitzel zara [facility] 0 11:43:28 Skin lesion 31403733 Completed 201708/22/2019 High Grade Squamous Intraepi thelial Lesion Liam Doty- itzel null, [facility] 0 11:43:21 Malignan t melanoma 203079555 Completed 201808/22/2019 [facility] null, [facility] 0 11:44:04 History of malignan t melanoma of the skin 59754392735 8 Active 2019 Valencialeonard Enriquez null, [facility] 0 15:44:35 Mild intermit tent asthma 469085567 Active 2019 Valencia Enriquez null, [facility] 0 15:44:35 Malignan t tumor of anus 181453437 Active 2019 [facility] itzel null, [facility] 0 11:24:40 History of SARS-CoV -2 [id number] 1131257 Active 2021 Kamille Valera MA null, [facility] 2 11:02:49 Persiste nt cough 834561156 Completed 202108/23/2023 YANIRA JO MD [address], [place], [address] , [facility] 4 07:52:21 Recurren t pneumoni a 654689152 Completed 202108/23/2023 YANIRA JO MD [address], [place], [address] , [facility] 4 07:52:33 Osteopen ia 992384706 Active 2023 YANIRA JO MD [address], [place], [address] , [facility] 4 12:39:40 Subclini annabel hyperthy roidism 956678770 Active 2023 YANIRA JO MD [address], [place], [address] , [facility] 4 05:47:03 History of malignan t neoplasm of anus 16076181115 9105 Active 2023 Morenita zuñiga [facility] 4 08:58:36 Notes:Some problems listed i n Document: #[id number] could not be added to this patient's chart. Please review this document and add these problems to the patient's chart manually as needed. Problem Notes None recorded. Procedures Surgical History Date Name Laterality Status Provider Name and Address Organization Details Recorded Time 11/08/19 Advanced Care Planning completed YANIRA JO MD [address], [place], [address], [facility] 11/06/2024 07:47:18 04/25/20 24 Most Recent Mammogram completed Isabelle Echols [facility] 04/25/2024 13:40:50 08/24/19 24 Advanced Care Planning completed YANIRA JO MD [address] [address], [place], [address], [facility] 08/23/2023 07:47:42 11/15/19 22 Mammogram Screening completed Rachna Nogueira [facility] 11/16/2021 10:06:09 07/02/19 22 Date of Last Pap Smear completed Hanane Watson MA [facility] 04/20/2022 10:40:41 07/07/19 20 Date of Last Colonoscopy completed Dianne Fuchs [facility] 07/07/2019 09:42:31 07/07/19 20 Colonoscopy completed Dianne Fuchs [facility] 07/07/2019 09:42:24 07/18/19 17 Consult w/med hlth care prof completed Noemi Sanchez [facility] 08/23/2016 14:22:14 08/31/19 14 Central Office Operator Surgery completed Hanane Watson MA [facility] 04/20/2022 10:33:59 02/14/20 08 Most Recent Bone Density completed Taisha Moon [facility] 09/03/2015 13:50:10 06/01/20 07 Joint Replacement completed Hanane Watson MA [facility] 04/20/2022 10:33:59 12/30/18 88 Dilation and Curettage completed Hanane Watson MA [facility] 04/20/2022 10:33:59 10/30/18 64 Tonsillectomy completed Hanane Watson MA [facility] 04/20/2022 10:33:59 Cancer Surgery completed Taisha Moon [facility] 09/03/2015 13:50:33 Imaging Results Imaging Date Name Status LastModified by Organiz ation Details LastModified Time 09/18/2023 DEXA, axial skeleton completed [facility] (Outpt Imaging) [address] [place], [address], 09/27/2023 17:10:52 09/27/2023 bone density completed [facility] [address], [place], [address], 09/27/2023 12:36:54 02/04/2024 US, head + neck, soft tissue completed [facility] (Outpt Imaging) [address] [place], [address], 02/07/2024 10:10:49 04/25/2024 MAMMO, screening, digital, bilateral completed [facility] [address], [place], [address], 04/27/2024 15:42:53 04/25/2024 MAMMO, screening, digital, bilateral completed [facility] (Outpt Imaging) [address] [place], [address], 04/25/2024 13:40:56 10/15/2024 MRI, brain + internal auditory canal, w/wo contrast completed [facility] [address], [place], [address], 10/21/2024 10:55:35 Procedure Notes None recorded. Medical Equipment None Reported. Allergies Allergen ID Allergen Name Allergen Category Reaction Reaction Severity Criticality Documentation Date Start Date Code Code System Note Provider Name and Address Organization Details Recorded Time [address] [place] medicatio n edema rash severe severe Not available 08/08/2017 49189 69 RxNorm COURTNEY Dempsey, [facility] 8 13:42:53 Medications Name Sig Start Date Stop Date Status Note LastModified by Organization Details LastModified Time amoxicill in 500 mg capsule po prn dental work active Not Available Not Available No t Available doxycycli ne hyclate 100 mg capsule Take 1 capsule twice a day by oral route for 10 days. 03/10 completed Not Available Not Available Not Available fluconazo le 150 mg tablet Take 1 tablet every 72 hours by oral route as directed . 07/24 completed Not Available Not Available Not Available benzonata te 200 mg capsule Take 1 capsule 3 times a day by oral route for 7 days. 05/20 completed Not Available Not Available Not Available prednison e 20 mg tablet Take 2 tablets every day by oral route for 5 days. 05/20 completed Not Available Not Available Not Available doxycycli ne hyclate 50 mg capsule 08/22 completed Not Available Not Available Not Available Zithromax Z-Hernán 250 mg tablet QD 05/29 completed RECORDED 06/01/20 09 8:47AM BY LIAM Rogers MD, MEDICATI ON AUTO-SELWYN CTIVATIO N;2PO QD FOR 1 DAY, THEN 1 QD FOR 4 DAYS. Not Available Not Available Not Available meclizine 12.5 mg tablet Take 1 tablet 3 times a day by oral route for 15 days. 08/08 completed Not Available Not Available Not Available aspirin 81 mg tablet,de layed release Take 1 tablet every day by oral route. 12/30 completed Not Available Not Available Not Available tramadol 50 mg tablet 08/08 completed Not Available Not Available Not Available guaifenes in 100 mg/5 mL oral liquid Take 10 mL every 4 hours by oral route for 10 days. 06/01 completed Not Available Not Available Not Available Motrin 800 mg tablet Q 8HRS PRN 04/15 completed RECORDED 04/15/20 10 4:36PM BY COURTNEY CANAS ANNOTATI ON/ALYX ONTIVEROS;THIS ORDER DISCONTI NUED PER MEDI-SPA N. Not Available Not Available Not Available amoxicill in 875 mg tablet BID 07/23 completed RECORDED 10/26/19 13 3:00PM BY KAMILLE RED PA-C, MEDICATI ON AUTO-SELWYN CTIVATIO N; Not Available Not Available Not Available Naphcon-A 0.025 %-0.3 % eye drops 2 drops in affected eye up to 4 times daily 2013 active Not Available Not Available Not Avai lable benzonata te 100 mg capsule Take 1 capsule 3 times a day by oral route as needed for 10 days. 07/24 completed Not Available Not Available Not Available erythromy christiana 5 mg/gram (0.5 %) eye ointment active Not Available Not Available Not Available polymyxin B sulfate 10,000 unit-trim ethoprim 1 mg/mL eye drops QID 07/16 completed RECORDED 10/26/19 13 3:00PM BY KAMILLE RED PA-C, MEDICATI ON AUTO-SELWYN CTIVATIO N; Not Available Not Available Not Available methimazo le 5 mg tablet TAKE ONE TABLET BY MOUTH EVERY DAY active Not Available Not Available No t Available codeine 10 mg-guaife nesin 100 mg/5 mL oral liquid Take 10 mL every 4-6 hours by oral route as needed. 06/08 completed Not Available Not Available Not Available levofloxa christiana 500 mg tablet DAILY 06/21 completed RECORDED 07/09/19 13 9:07AM BY MARTINE HYMAN, MEDICATI ON AUTO-SELWYN CTIVATIO N; Not Available Not Available Not Available levofloxa christiana 750 mg tablet Take 1 tablet every day by oral route for 5 days. 06/08 completed Not Available Not Available Not Available scopolami ne 1 mg over 3 days transderm al patch Apply 1 patch every 72 hours by transder mal route for 5 days. 11/07 completed Not Available Not Available Not Available methylpre dnisolone 4 mg tablets in a dose pack Take 1 package by oral route for 6 days. active Not Available Not Available No t Available albuterol sulfate HFA 90 mcg/actua tion aerosol inhaler INHALE ONE PUFF EVERY 4 TO 6 HOURS NEEDED for 90 days active Not Available Not Available No t Available doxycycli ne hyclate 100 mg tablet Take 1 tablet twice a day by oral route for 7 days. active Not Available Not Available No t Available diazepam 5 mg tablet 08/08 completed Not Available Not Available Not Available amoxicill in 875 mg-potass ium clavulana te 125 mg tablet Take 1 tablet every 12 hours by oral route for 5 days. 06/01 completed Not Available Not Available Not Available oxycodone 5 mg tablet Take 1 tablet every 6 hours by oral route as needed for 1 day. 03/10 completed Not Available Not Available Not Available Calcium Citrate + D 315 mg-5 mcg (200 unit) tablet Take 1 tablet every day by oral route. active Not Available Not Available No t Available melatonin ER 3 mg tablet,ex tended release Take 1 tablet every day by oral route at bedtime. 03/10 completed Not Available Not Available Not Available albuterol (refill) 90 mcg/actua tion aerosol inhaler QID PRN WHEEZING 04/15 completed RECORDED 04/15/20 10 4:36PM BY FLORECITA RAMOS ON/ALYX DUM; Not Available Not Available Not Available Flax Seed Oil 1,000 mg capsule Take 1 capsule every day by oral route. active Not Available Not Available No t Available codeine-g uaifenesi n oral syrup Q 6HRS PRN COUGH 04/15 completed RECORDED 04/15/20 10 4:35PM BY FLORECITA RAMOS ON/ALYX DUM; Not Available Not Available Not Available azelaic acid 15 % topical gel 08/22 completed Not Available Not Available Not Available Aspirin EC DAILY active RECORDED 02/07/20 13 9:56AM BY HANANE WATSON, OFFICE VISIT; Not Available Not Available Not Available Daily Multi Vitamin/M inerals 1 PO DAILY active Not Available Not Available No t Available Advair Diskus 1 puff as needed 02/26 completed Not Available Not Available Not Available Calcium 500 1 PO DAILY 08/08 completed Not Available Not Available Not Available Oracea 40 mg capsule,i mmediate - delay release QD active RECORDED 04/22/20 10 3:54PM BY LIAM Rogers MD, ANNOTATI ON/ADDEN DUM; Not Available Not Available Not Available Symbicort 80 mcg-4.5 mcg/actua tion HFA aerosol inhaler Inhale 2 puffs twice a day by inhalati on route for 30 days. 08/18 completed Not Available Not Available Not Available melatonin 5 mg tablet Take 1 tablet every day by oral route at bedtime. active Not Available Not Available No t Available Zyrtec 10 mg capsule Take 1 capsule every day by oral route for 10 days. 10/20 completed Not Available Not Available Not Available Suprep Bowel Prep Kit 17.5 gram-3.13 gram-1.6 gram oral solution 08/22 completed Not Available Not Available Not Available lidocaine 5 % topical ointment 08/08 completed Not Available Not Available Not Available Lotemax 0.5 % eye gel drops 08/22 completed Not Available Not Available Not Available flaxseed oil 1,300 mg-omega 3,6,9 845 mg-117 mg-117 mg capsule 1 capsule every day by oral route. 2011 active Not Available Not Available Not Avai lable Afluria (PF) 45 mcg (15 mcg x 3)/0.5 mL intramusc ular syringe active Not Available Not Available Not Available Flonase Allergy Relief 50 mcg/actua tion nasal spray,[employer] [place] 1 spray every day by intranas al route for 10 days. 10/20 completed Not Available Not Available Not Available [place] 4 % topical cream 08/08 completed Not Available Not Available Not Available Fluarix Quad (PF) 60 mcg (15 mcg x 4)/0.5 mL IM syringe 08/08 completed Not Available Not Available Not Available Readi-Cat 2 2 % (w/v) oral suspensio n DRINK FIRST BOTTLE 6 HOURS BEFORE PROCEDUR E AND SECOND BOTTLE 1 AND 1/2 HOUR BEFORE 12/30 completed Not Available Not Available Not Available Wixela Inhub 250 mcg-50 mcg/dose powder for inhalatio n INHALE 1 PUFF BY MOUTH TWO TIMES A DAY NEEDED active prn Not Available Not Available No t Available Fluarix Quad (PF) 60 mcg (15 mcg x 4)/0.5 mL IM syringe 08/22 completed Not Available Not Available Not Available Flowflex COVID-19 Antigen Home Test kit FOLLOW INSTRUCT IONS INCLUDED WITH THE PACKAGE. 04/20 completed Not Available Not Available Not Available Paxlovid 300 mg (150 mg x 2)-100 mg tablets in a dose pack Take 3 tablets twice a day by oral route as directed for 5 days. 04/20 completed Not Available Not Available Not Available Vitals Date Recorded Body height Body mass index (BMI) Body weight Heart rate Oxygen saturation Oxygen saturation in Arterial blood by Pulse oximetry Body temperature Systolic blood pressure Diastolic blood pressure Provider Name and Address Organization Details Last Updated DateTime 4 167.01 cm 32 kg/m2 19683.9 g 84 /min 97 % 97 % 97.3 [degF] 142 mm[Hg] 90 mm[Hg] Kamille Valera [facility] 4 10:35:42 Date Recorded Systolic blood pressure Diastolic blood pressure Provider Name and Address Organization Details Last Updated DateTime 08/24/2023 150 mm[Hg] 60 mm[Hg] YANIRA JO MD [address] [facility] [address], [place], [address], [facility] 08/24/2023 10:47:34 Date Recorded Body height Body mass index (BMI) Body weight Oxygen saturation Oxygen saturation in Arterial blood by Pulse oximetry Heart rate Body temperature Systolic blood pressure Diastolic blood pressure Provider Name and Address Organization Details Last Updated DateTime 4 167.01 cm 32.1 kg/m2 12678.5 g 98 % 98 % 73 /min 97.5 [degF] 128 mm[Hg] 79 mm[Hg] Hanane Watson MA [facility] 4 11:29:07 Date Recorded Body height Body mass index (BMI) Body weight Oxygen saturation Oxygen saturation in Arterial blood by Pulse oximetry Heart rate Body temperature Systolic blood pressure Diastolic blood pressure Provider Name and Address Organization Details Last Updated DateTime 4 167.01 cm 32.6 kg/m2 44452.2 7 g 98 % 98 % 73 /min 98.1 [degF] 123 mm[Hg] 83 mm[Hg] Hanane Watson MA [facility] 4 09:21:32 Date Recorded Body height Body mass index (BMI) Body weight Heart rate Oxygen saturation Oxygen saturation in Arterial blood by Pulse oximetry Body temperature Systolic blood pressure Diastolic blood pressure Provider Name and Address Organization Details Last Updated DateTime 5 167.01 cm 32.7 kg/m2 84204.0 7 g 71 /min 98 % 98 % 98 [degF] 138 mm[Hg] 82 mm[Hg] Susan perdue MA [facility] 5 10:49:44 Date Recorded Body height Provider Name an d Address Organization Details Last Updated DateTime 11/07/2024 167.01 cm Kamille Valera MA [facility] 11/07/2024 14:21:43 Date Recorded Body mass index (BMI) Body weight Heart rate Oxygen saturation Oxygen saturation in Arterial blood by Pulse oximetry Body temperature Systolic blood pressure Diastolic blood pressure Systolic blood pressure Diastolic blood pressure Provider Name and Address Organization Details Last Updated DateTime 5 32.5 kg/m2 40358.4 7 g 68 /min 98 % 98 % 97.3 [degF] 138 mm[Hg] 83 mm[Hg] 140 mm[Hg] 68 mm[Hg] YANIRA JO MD [address], [facility] [place], [address], [facility] 5 14:48:19 Social History Question Answer Notes LastModified by Organizat ion Details LastModified Time Tobacco Smoking Status Never Smoker Hanane Watson MA null, [facility] 02/18/2014 09:43:11 Do You Have An Advance Directive? No Information not available 06/08/2022 Animal Exposure? Yes Information not available 06/08/2022 Do You Wear A Helmet When Biking? Yes Information not available 06/08/2022 Is Blood Transfusion Acceptable In An Emergency? Yes Information not available 09/03/2015 What Is Your Level Of Caffeine Consumption? None Decaf Coffee Information not available 11/07/2024 How Much Tobacco Do You Chew? None Information not available 09/03/2015 What Type Of Diet Are You Following? REGULAR [email or web address] Information not available 02/18/2014 Which Illicit Or Recreational Drugs Have You Used? None Information not available 11/10/2015 Education 4 Year College Information not available 06/08/2022 Have There Been Any Changes To Your Family Or Social Situation? No Information not available 06/08/2022 How Many Days In The Past Year Have You Had A Heavy Drinking Consumption (4+ Female, 5+ Male)? 0 [email or web address] Information not available 06/01/2022 Are There Any Guns Present In Your Home? No Information not available 06/08/2022 Legally Blind In One Or Both Eyes? No Information not available 06/08/2022 Live Alone Or With Others? With Others , Son, 2 Granchlidren And 1 Dog Information not available 11/07/2024 Do You Take Precautions To Prevent Distracted Driving? Yes Information not available 11/10/2015 How Often Do You Need To Have Someone Help You When You Read Instructions, Pamphlets, Or Other Written Material From Your Doctor Or Pharmacy? Never Information not available 11/10/2015 Have You Served In The ? No [email or web address] Information not available 12/30/2020 Have You Or Anyone In Your Household Had Any Of The Following Symptoms In The Last 14 Days: Sore Throat, Cough, Chills, Body Aches For Unknown Reasons, Shortness Of Breath For Unknown Reasons, Loss Of Smell, Loss Of Taste, Fever At Or Greater Than 100 Degrees Fahrenheit? No [email or web address] Information not available 12/30/2020 Are You Or Anyone In Your Household A Health Care Provider Or Emergency Responder? No [email or web address] Information not available 12/30/2020 To The Best Of Your Knowledge Have You Been In Close Proximity To Any Individual Who Tested Positive For COVID-19? No [email or web address] Information not available 12/30/2020 Have You Recently Traveled To A COVID-19 High Risk Area Or Gathering In The Last 10 Days? No [email or web address] Information not available 12/30/2020 Marital Status Informatio n not available 06/08/2022 What Was The Date Of Your Most Recent Tobacco Screening? 11/07/2024 Information not available 11/07/2024 Total Number Of Stairs In Home 10 Information not available 06/08/2022 How Many Children Do You Have? 4 [email or web address] Information not available 02/18/2014 Do You Use Protection During Sex? No [email or web address] Information not available 04/20/2022 Difficulty Reading? No Information not available 06/08/2022 What Is Your Relationship Status? Information not available 06/08/2022 Do You Use Your Seat Belt Or Car Seat Routinely? Yes [email or web address] Information not available 04/20/2022 Seat Belts Used Routinely Yes Information not available 06/08/2022 Are You Sexually Active? Yes Information not available 09/03/2015 Smoke Alarm In Home Yes Information not available 06/08/2022 Do You Have Smoke And Carbon Monoxide Detectors In Your Home? Yes [email or web address] Information not available 04/20/2022 At What Age Did You Start Smoking Tobacco? 0 Information not available 11/10/2015 Are You Passively Exposed To Smoke? No Information not available 11/10/2015 How Much Tobacco Do You Smoke? No Information not available 11/10/2015 What Types Of Sporting Activities Do You Participate In? Bike,streng th Training Information not available 06/08/2022 General Stress Level Low Information not available 06/08/2022 Do You Use Sunscreen Routinely? Yes [email or web address] Information not available 02/18/2014 How Many Years Have You Smoked Tobacco? 0 Information not available 11/10/2015 Do You Have Difficulty Walking Or Climbing Stairs? No Information not available 06/08/2022 Sex: Unknown Functional Status Question Answer Note LastModified by Organizat ion Details LastModified Time Do you use any illicit or recreational drugs? No Information not available 06/08/2022 What is your level of alcohol consumption? Occasional [email or web address] Information not available 02/18/2014 Do you or have you ever used smokeless tobacco? Never used smokeless tobacco [email or web address] Information not available 12/17/2019 Are you currently employed? No Information not available 08/24/2023 [address]iculty driving at night? No Information no t available 06/08/2022 Are you able to walk? [email or web address] Information not available 06/08/2022 Are you able to care for yourself? Yes [email or web address] Information not available 02/18/2014 What is your occupation? Retired [email or web address] Information not available 04/20/2022 Do you have difficulty dressing or bathing? No Information not available 06/08/2022 Do you or have you ever used e-cigarettes or vape? Never used electronic cigarettes Information not available 06/08/2022 What is your exercise level? Moderate [email or web address] Information not available 02/18/2014 Mental Status Question Answer Note LastModified by Organization D etails LastModified Time Do you have difficulty concentrating, remembering or making decisions? No Information no t available 06/08/2022 Family History Relationship Description Onset Age of this Age Resolved Age Notes LastModified by Organization Details LastModified Time Father Malignant neoplasm of lung [email or web address] Not available 12/16 14:29:42 Sister Diabetes mellitus [email or web address] Not available 11/10/2015 14:14:20 Mother Dementia [email or web address] Not availab le 04/20/2022 10:33:33 Son Allergy [email or web address] Not availabl e 04/20/2022 10:33:33 Son Asthma Not available 04/20/2022 10:33:33 Unspecified Relation Attention deficit hyperactivit y disorder [email or web address] Not available 04/02 10:33:33 Notes:No FH of colon or malini st cancer Medical History Condition Response Coronary Artery Disease N Other N Gout N Kidney Stones N Blood Diseases N Hyperthyroidism N Breast Cancer N mrsa exposure N Depression N COPD N Lung Disease N Hypothyroidism N Developmental or Behavioral Disorders N Defects or Inherited Disease N Breast Problem N Anesthesia Complications N Headaches/Migraines N Varicose Veins Y Anxiety Disorder N Muscle, Joint, or Bone Problems N Obesity Y Vision or Eye Problems N Arthritis Y Head Injury/Concussion N Polyps N Infertility N Mental Disorder N Congenital Anomalies N Acid Reflux (GERD) N Cancer Y Stroke N ADHD N Endometriosis N High Cholesterol N Liver Disease N Headaches N Fibromyalgia N Kidney Disease N Heart Problems N Ear or Hearing Problems N Hospitalizations N Thyroid Problems N GI Problems N Developmental Delay N Acne N Skin Problems Y Eating Disorder N Anemia Y Constipation N Bladder Problems N Mental Illness N Ovarian Cancer N Diabetes N Bedwetting N Blood Transfusions N Seizures/Epilepsy N Heart Problems/Murmur N Tuberculosis N AIDS/HIV N Congestive Heart Failure (CHF) N Eczema N Diverticulitis N Abuse/Domestic Violence N Asthma Y Allergies N Reflux/GERD N Hepatitis N Heart Disease N Pulmonary Embolism N Hypertension N Osteoporosis N Chicken Pox Y Autism Spectrum Disorder (ASD) N Gynecological History Statement/Question Response STIs/STDs N HPV Vaccine N Most Recent Mammogram 04/25/2024 Current Control Method Tubal Ligat ion Age at Menarche 14 Age at First Child 29 If Post Menopausal, Age at Menopause 52 Date of Last Colonoscopy 07/07/2019 Most Recent Bone Density 02/14/2008 Sexually Active? Y Date of Last Pap Smear 07/02/2021 Sexual Problems? N N Obstetrics History GPAL:G 0 P 0 0 0 0 Immunizations Vaccine Type Date Status Note Provider Nam e and Address Organization Details Recorded Time influenza, unspecified formulation 7 completed Valencia zuñiga [facility] 12/17/2019 15:44:30 COVID-19, mRNA, LNP-S, PF, 100 mcg/0.5mL dose or 50 mcg/0.25mL dose 1 completed COURTNEY Dempsey [facility] 04/20/2022 10:32:58 COVID-19, mRNA, LNP-S, PF, 100 mcg/0.5mL dose or 50 mcg/0.25mL dose 1 completed COURTNEY Dempsey [facility] 04/20/2022 10:32:58 Influenza, MDCK, quadrivalent, PF 8 completed COURTNEY Dempsey [facility] 04/20/2022 10:32:58 COVID-19, mRNA, LNP-S, PF, 100 mcg/0.5mL dose or 50 mcg/0.25mL dose 2 completed COURTNEY Dempsey [facility] 04/20/2022 10:32:58 Influenza, split virus, quadrivalent, PF 0 completed COURTNEY Dempsey [facility] 04/20/2022 10:32:58 COVID-19, mRNA, LNP-S, PF, 100 mcg/0.5mL dose or 50 mcg/0.25mL dose 1 completed COURTNEY Dempsey [facility] 04/20/2022 10:32:58 Influenza, split virus, quadrivalent, PF 9 completed COURTNEY Dempsey [facility] 04/20/2022 10:32:58 Influenza, split virus, quadrivalent, PF 1 completed COURTNEY Dempsey [facility] 04/20/2022 10:32:58 Influenza, split virus, quadrivalent, PF 2 completed COURTNEY Dempsey [facility] 04/20/2022 10:33:23 Td (adult), 2 Lf tetanus toxoid, preservative free, adsorbed 2 completed COURTNEY Valle [facility] 05/05/2022 10:59:56 COVID-19, mRNA, LNP-S, bivalent, PF, 50 mcg/0.5 mL or 25mcg/0.25 mL dose 2 completed COURTNEY Dempsey [facility] 07/24/2022 14:03:51 Pneumococcal conjugate PCV20, polysaccharide [id number] conjugate, adjuvant, PF 3 completed COURTNEY Valle, [facility] 03/10/2023 09:41:14 COVID-19, mRNA, LNP-S, bivalent, PF, 50 mcg/0.5 mL or 25mcg/0.25 mL dose 3 completed COURTNEY Valle, [facility] 03/10/2023 09:41:14 zoster recombinant 4 completed COURTNEY Valle, [facility] 08/24/2023 10:18:35 zoster recombinant 3 completed COURTNEY Valle, [facility] 08/24/2023 10:18:36 Influenza, adjuvanted, quadrivalent, PF 3 [facility] 10:18:36 RSV, recombinant, protein subunit RSVpreF, adjuvant reconstituted, 0.5 mL, PF 3 completed Kamille DemarcusCOURTNEY [facility]/24/2023 10:18:36 COVID-19, mRNA, LNP-S, PF, 50 mcg/0.5 mL 3 completed COURTNEY Valle, [facility] 08/24/2023 10:18:36 Influenza, high-dose, trivalent, PF 4 completed COURTNEY Dempsey, [facility] 05/12/2024 09:21:49 COVID-19, mRNA, LNP-S, PF, keo-sucrose, 30 mcg/0.3 mL 5 completed COURTNEY Bueno, [facility] 10/03/2024 10:43:21 Influenza, split virus, trivalent, preservative 8 completed [facility]17[facility]2019 15:44:30 Influenza, split virus, trivalent, preservative 9 completed Valencia Enriquez null, [facility] 12/17/2019 15:44:30 Influenza, split virus, trivalent, preservative 0 completed Valencia Enriquez null, [facility] 12/17/2019 15:44:30 Tdap 2 completed Valencia Enriquez null, [facility] 12/17/2019 15:44:30 influenza, seasonal, intradermal, preservative free 3 completed Valencia Enriquez null, [facility] 12/17/2019 15:44:30 Past Encounters Encounter ID Performer Location Encounter Start Date Encounter Closed Date Diagnosis/Indication Diagnosis SNOMED-CT Code Diagnosis ICD10 Code Diagnosis Note [id number] autoEComm erce [address] [facility] [place] [address] 10/24/2006 00:00:00 [id number] autoEComm erce [address] [facility] [place] [address] 02/18/2007 00:00:00 [id number] autoEComm erce [address] [facility] [place] [address] 05/29/2008 00:00:00 [id number] autoEComm erce [address] [facility] [place] [address] 07/01/2008 00:00:00 [id number] autoEComm erce [address] [facility] [place] [address] 09/11/2008 00:00:00 [id number] autoEComm erce [address] [facility] [place] [address] 03/19/2009 00:00:00 [id number] autoEComm erce [address] [facility] [place] [address] 05/24/2009 00:00:00 [id number] autoEComm erce [address] [facility] [place] [address] 02/08/2010 00:00:00 [id number] autoEComm erce [address] [facility] [address] [place] ro[place], [place] [address] 04/22/2010 00:00:00 [id number] autoEComm erce [address] [facility] [address] [place], [place] [address] 10/10/2011 00:00:00 [id number] autoEComm erce [address] [facility] [address] [place], [place] [address] 02/07/2012 00:00:00 [id number] autoEComm erce [address] [facility] [address] [place], [place] [address] 06/14/2012 00:00:00 [id number] autoEComm erce [address] [facility] [place], [place] [address] 07/09/2012 00:00:00 [id number] autoEComm erce [address] [facility] [address] [place], [place] [address] 02/06/2013 00:00:00 [id number] Liam robbins MD Main Office [address] [address] [place] [address] 02/18/2014 09:24:14 02/18/2014 10:19:52 Adult health examination [id number] pap, mammo and colonoscop y utd, is biking, quite active, will restart weight training. is workign on weight loss Asthma 087411828 no need for inhalers, very stable. Stomach cramps 98163322 sounds either GERD or muscle spasm related, shewill try otc prilosc, smaller meals, if it does not resolve pt to come in for followup and workup [id number] MUNIRA Hyman Main Office [address] [address] [place] [address] 06/08/2014 09:25:40 06/08/2014 10:12:50 Acute pharyngitis 178698202 Viral conjunctivitis 26021461 Extrinsic asthma with asthma attack 667947925 call if asthma not getting better and can do prednisone [id number] Nicole Peter PA-C Main Office [address] [address] [place] [address] 09/03/2015 13:42:14 09/03/2015 14:10:09 Asthma 817521094 J45.909 Asthma exacerbati on related to viral infection. Start Medrol dose pack as dir. for 6 days. Continue ADvair D. 250-50 1 puff BID and rescue inh. QID. Viral disease 71643391 B 34.9 Acute sinusitis 93409736 J01.90 Otitis media 30814448 H6 6.92 L> Otitis Media. Start Abx as dir. OTC decongesta nts discussed. 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, clear margins, gets yearly anal pap smears and checks, surgery was a year ago Actinic keratosis 052244 007 L57.0 had facial tx, had an allergic reaction to it, healing now with steroid cream [id number] Liam robbins MD Main Office [address] [address] [place] [address] 08/22/2019 11:00:11 08/22/2019 11:48:42 Thrombophlebitis of superficial veins of lower extremity 02967760 I80.299 pt to use compresses , NSAIDS, elevate and see vascular History of malignant melanoma of the skin 1914906216 08 Z85.820 sees derm every 6 months Mild inter mittent asthma 160744456 J45.20 uses prn meds for a cold [id number] Liam A. Glading-Di itzel, MD Main Office [address] [facility] [address] [place] [address] 12/17/2019 14:16:41 12/17/2019 15:00:12 Adult health examination 043281967 Z00.00 pap, mammo and colonoscop y utd, is watching her grandkids (has 6). History of malignant melanoma of the skin 4717952821 08 Z85.820 sees derm every 6 months Mild inter mittent asthma 699681211 J45.20 uses prn meds for a cold Osteoarthritis 133965486 M19.90 stable, keep active Fatigue 85983359 R53.83 check labs Hypercholesterolemia 136 94026 E78.00 Malignant tumor of anus 725238647 C21.0 high grade dysplasia of anal margin, clear margins, will have staff call to make sure she gets regular followup with the surgeon. [id number] Liam robbins MD Main Office [address] [facility] [address] [place] [address] 12/30/2020 09:50:40 12/30/2020 10:41:17 Adult health examination 402943216 Z00.00 pap, mammo and colonoscop y utd, lost 18lbs with biking and logging food History of malignant melanoma of the skin 7380497515 08 Z85.820 sees derm every 6 months appt 02/19 new raised lesion below neck, examined today, can wait until appt 02/19, not concerning for melanoma Mild inter mittent asthma 410959455 J45.20 uses prn meds for a cold Osteoarthritis 011646987 M19.90 stable, keep active is in thumbs Pain in right foot 76063 06543 61252 M79.671 refer to podiatry [id number] Kyler Dia MD Tele[facility] [address] [facility] [address] [place] [address] 01/31/2022 10:23:06 01/31/2022 12:52:46 COVID-19 716301848 U07.1 being rx'd at same time Counseling 461427955 Z71 .9 Health advice, education or counseling done for COVID 19 [id number] Liam robbins MD Main Office [address] [address] [place] [address] 04/20/2022 10:23:28 04/20/2022 10:56:09 Adult health examination 619831077 Z00.00 pap, mammo and colonoscop y utd, lost 8lbs with biking and logging food Mild inter mittent asthma 271898502 J45.20 uses prn meds for a cold Requires a tetanus booster 520282165 Z23 History of malignant melanoma of the skin 3341850429 08 Z85.820 sees derm every 6 months sees them 05/23 [id number] Liam robbins MD Main Office [address] [place] [address] 05/05/2022 10:39:51 05/05/2022 12:05:48 Upper respiratory infection 87024738 J06.9 Rest, warm mist then out in cool air, humidifier at night, hydration and start meds. Cough 66931916 R05.9 Likely viral cough, will do prednisone burst, try tessalon, hydration , rest, OOW. RSV negative. Due to lung sounds will do cxr ro rule out underlying pneumonia. If worsening to call or ED if acute. Pneumonia 388838310 J18. 9 ADDENSUM: chest xray shows left mid lung opacity, possible pneumonia. Will treat with doxycyclin e for 10 days and repeat CXR in a month. If not improving or if worse to seek urgent care/emerg ency care. [id number] YANIRA JO MD Main Office [address] [place] [address] 05/20/2022 11:08:30 05/20/2022 11:45:11 Cough 05703919 R05.9 - pt continues to have a barking cough -> improved but then worsened- RSV negative- based on the cough sounds like it may be laryngotra cheitis- pt given prednisone burst, will not repeat another dosage- ordered guaifenesi n to help with the cough- ED precaution s given Upper resp iratory infection 60233458 J06.9 Rest, warm mist then out in cool air, humidifier at night, hydration and start meds. Pneumonia 349124194 J18. 9 - chest x-ray on 05/05 showed left mid lung opacity, pt was given doxycyline for which she completed the course- due to worsening of symptoms ordered a repeat x-ray to ensure there was no worsening of the pneumonia> if x-ray shows worsening will repeat antibiotic course with another type of antibiotic - on exam pt did not have reduced lungs sounds, rhonchi/wh eezing/scrap collector ckles therefore do not believe patient needs another course of steroids or antibiotic s at this time- pt advised to continue with inhalers- ED precaution s given [id number] Kyler Dia MD Main Office [address] [facility] [address] [place] [address] 06/01/2022 10:51:21 06/01/2022 12:00:55 Persistent cough 746393790 R05.3 barking cough persists despite 2 rounds of abx and pred pulse and tessalon - has had pna on xray x 2 --- see below no h/o narcotic abuse, low risk -- hopefully get the greatest benefit of narcotic cough med to help reduce her cough severity & frequency Cough variant asthma 409 438701 J45.991 no sig help c advair, so trial c changeover to symbicort- ---go back on advair if symbicort not covered Recurrent pneumonia 6990 98362 J18.9 suspect another pna = rx c 3rd round of abx = recommend probiotics while on abx check CT scan chest f/u 1 wk - consider pulm eval if no sig improvemen t [id number] Kyler Dia MD Main Office [address] [facility] [address] [place] [address] 06/08/2022 11:24:29 06/08/2022 12:22:04 Cough 70665727 R05.9 sig better lately - rec prn tessalon, consider prn ns spray if has pnd Cough variant asthma 409 726945 J45.991 no sig help c advair, so trial c changeover to symbicort- ---go back on advair if symbicort not covered 12.22 - symbicort not covered, cont advair as dir Recurrent pneumonia 6990 38493 J18.9 suspect another pna = rx c 3rd round of abx = recommend probiotics while on abx check CT scan chest f/u 1 wk - consider pulm eval if no sig improvemen t 12.22 - sig better p levaquin, printed CT report and reviewed c pt - no need for pulm eval since ct chest stable and feeling better on generic advair c prn alb [id number] Liam robbins MD Main Office [address] [facility] [address] [place] [address] 07/24/2022 13:55:50 07/24/2022 14:51:18 Acute sinusitis 21901413 J01.90 steam, flonase, sinus nasal rinses, keep hydrated, start antibiotic Persistent cough 2462664 02 R05.3 see note from HPI refer to pulmonary amilcar, try otc cough med, flonase, hydration, call if worsening. Consider reimaging but prefer to wait for pulmonary evaluation . [id number] Liam robbins MD Main Office [address] [place] [address] 08/18/2022 15:37:25 08/18/2022 16:21:09 Mild intermittent asthma 972400442 J45.20 seeing pulm in August, low threshold to restart meds with any allergy or cough sx. Curerently cough better Low back pain 667155040 M54.59 Rest, stretching at home, start PT program, sleep with pillow under knees or between knees. Likely muscular with spasm at times, call if not better with PT Acute sinusitis 67473218 J01.90 steam, flonase, sinus nasal rinses, keep hydrated, better with antibioitc givne a few weeks ago [id number] Frantz Tracey MD Main Office [address] [facility] [address] [place] [address] 03/10/2023 09:37:44 03/10/2023 10:16:10 Impacted cerumen in right ear 7988211353 034018 H61.21 Ear lavaged successful ly. Tinnitus of right ear 48 40599236 108 H93.11 Some improvemen t after ear lavage. She will call if this persists. Her hearing is subjective ly normal. [id number] YANIRA JO MD Main Office [address] [facility] [address] [facility] [place], [place] [address] 08/24/2023 10:10:11 08/24/2023 10:52:46 Advance directive discussed with patient 711646359 Z71.89 - discussed HPC and MOLTS Adult heal th examination 770816426 Z00.00 Health Maintenanc e FemaleA) Patient was counseled on healthy diet, exercise and nutrition due to BMI of 32 B) ScreeningL ast Mammogram: start at age 52 stop at 76Date: 04/10/2023 (on PVIX)Resul t: BIRADS-1Ne xt: 04/2024 Last Pap smear: patient is still getting every 2 years, will get results Last Colonoscop y: start at age 45-75Date: 07/07/2019Re sult: diverticul osisNext: 10 years Last DEXA scan:Date: due at 67Result: ordered C) Vaccines:I nfluenza: 04/10/2023 TdAP: 04/20/2022 (Td)Zoster : 05/16/2023 , 07/17/2023 PCV20: 09/28/2022 OVID: 08/27/2020, 09/24/2020, 04/26/2021 , 10/25/2021, 06/20/2022 , 12/17/2022, 04/16/2023 RSV: 05/04/2023 D) Routine blood work orderedE) Updated patient's history RTC in one year for annual exam or sooner if any acute complaints Bone density finding 385 060082 M85.89 History of malignant melanoma of the skin 6678491912 08 Z85.820 - was located on the [facility] arm- pt wears suncreen and wears protected clothing- 2-3 times a year 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 One drink equals 12 oz of beer, 5 oz of wine, or 1 oz of hard liquor.- Keep a weight loss journal and keep track of the food and portions that you eat.- The exercise that you do- 4 times a week or 150 minutes cumulative of moderate exercise amanda cho [id number] YANIRA JO MD Main Office [address] [address] [place] [address] 01/15/2024 11:23:27 01/15/2024 11:43:03 Subclinical hyperthyroidism 603313948 E05.90 - TSH-0.046, fT4-1.27 (improving but slowly)- pt was referred to endo (has an appoitment april)- c/w methimazol e 5mg- positive TPO, thyroglobu zelda antibody Mild inter mittent asthma 164920213 J45.20 - uses albuterol inhaler mostly for URI Malignant tumor of anus 980376464 C21.0 - high grade dysplasia of anal margin, clear margins- was seen by colorectal surgeon in 06/2018 who stated patient no further interventi on was needed- pt did undergo surgery in the past- pt gets anal pap every three months- pt is currently following with Palak Shelley History of malignant melanoma of the skin 6663606760 08 Z85.820 - [facility]- pt wears suncreen and wears protected clothing- pt follows with dermatolog y, every 6 months Elevated blood-pressure reading without diagnosis of hypertension 789724808 R03.0 - BP today at goal 128/79- will continue to monitor, no need to start medication at this time [id number] YANIRA JO MD Main Office [address] [address] [place] [address] 05/12/2024 09:10:52 05/12/2024 09:34:13 History of malignant melanoma of the skin 6726708679 08 Z85.820 - was located on the [facility] arm- pt wears suncreen and wears protected clothing- pt follows with dermatolog y, every 4 months Osteopenia 993322418 M85 .80 - noted on bone density of 09/18/2023 at the femoral neck- pt counselled on weight bearing exercises- c/w vitamin D and calcium Subclinica l hyperthyroidism 264175387 E05.90 - TSH-3.36, fT4-1.19> orders have been placed for recheck -> is the same will reduce to methimazol e to 2.5- pt was referred to endo (has an appoitment 05/23)- c/w methimazol e 5mg- positive TPO, thyroglobu zelda antibody History of malignant neoplasm of anus 1706177084 75558 Z85.048 - hx of high grade dysplasia of anal margin, clear margins- was seen by colorectal surgeon in 06/2018 who stated patient no further interventi on was needed- pt did undergo surgery in the past- pt gets anal pap every three months -> pt had three abnormal paps- will be undergoing biospy and fulgaratio n in 06/03/2024 [id number] YANIRA JO MD Main Office [address] [facility] [address] [place] [address] 10/03/2024 10:38:33 10/03/2024 11:04:53 Tinnitus 38850839 H93.11 - chronic but worsening, now constant in nature- bilateral but worse on the right side- pt referred to hearing test- as mostly unilateral will order MRI of the brain and ear canal- pt also referred to ENT for further evaluation Maxillary sinus pain 301 651622 R51.9 - has been having pressure feeling in the maxillary sinus for about one week- at this time will treat with supportive therapy as do not believe it is sinus infection (due to lenght of time of symptoms and how mild symptoms are)- recommende d zyrtec 10mg- recommende d saline nasal washes- recommende d flonase to use nightly- Tylenol OTC, not to exceed package insert for pain or fever q4-6h advised prn. Counselled on not exceeding more than 3g/day.- adequate hydration enforced- humidifier use enforced.- if no improvemen t in one week will prescribe antibiotic therapy [id number] YANIRA JO MD Main Office [address] [facility] [address] [facility] [place], [place] [address] 11/07/2024 14:03:46 11/07/2024 14:52:18 Advance directive discussed with patient 314728468 Z71.89 - discussed HPC and POLTS Tinnitus 33350872 H93.11 - chronic but worsening, now constant in nature- bilateral but worse on the right side- pt referred to hearing test- MRI of the brain and ear canal done on 10/15/2024 was normal- pt also referred to ENT for further evaluation , awaiting appoitment Subclinica l hyperthyroidism 427459438 E05.90 - TSH-2.15, fT4-1.1 (done by endo)> orders have been placed for recheck -> is the same will reduce to methimazol e to 2.5- pt is following with endo, last seen on 09/24/2024- c/w methimazol e 5mg- positive TPO, thyroglobu zelda antibody Osteopenia 014332756 M85 .80 - noted on bone density of 09/18/2023 at the femoral neck- pt counselled on weight bearing exercises- c/w vitamin D and calcium History of malignant melanoma of the skin 8514931699 08 Z85.820 - [facility]- pt wears suncreen and wears protected clothing- pt follows with dermatolog y, every 4 months History of malignant neoplasm of anus 6291650131 10124 Z85.048 - hx of high grade dysplasia of anal margin, clear margins- was seen by colorectal surgeon in 06/2018 who stated patient no further interventi on was needed- pt did undergo surgery in the past- pt gets anal pap every three months -> pt had three abnormal paps- underwent biospy and fulgaratio n in 06/03/2024 -> normal Mild inter mittent asthma 050370425 J45.20 - c/w wixela 1 puff BID- c/w albuteral inhaler as needed General ex amination of patient 250421387 Z00.00 Health Maintenanc e FemaleA) Patient was counseled on healthy diet, exercise and nutrition due to BMI of 32.5 B) ScreeningL ast Mammogram: start at age 50 stop at 76Date: 04/25/2024 Result: BIRADS-1Ne xt: 04/2025 Last Pap smear:Date : 03/22/2023R esult: HPV negative, no atypical cellsNext: 5 years Last Colonoscop y: start at age 45-75Date: 07/07/2019Re sult: diverticul osisNext: 10 years Last DEXA scan:Date: 09/27/2023 esult: osteopenia Next: 09/26/2025 C) Vaccines:I nfluenza: 04/08/2024 TdAP: 04/20/2022 (Td)Zoster : 05/16/2023 , 07/17/2023 PCV20: 09/28/2022 OVID: 08/27/2020, 09/24/2020, 04/26/2021 , 10/25/2021, 06/20/2022 , 12/17/2022, 04/16/2023 , 07/03/2024RS V: 05/04/2023 D) Routine blood work orderedE) Updated patient's history RTC in one year for annual exam or sooner if any acute complaints Fatigue 34977913 R53.83 Z00.00 Hyperlipidemia 11466779 E78.5 Z00.00 - ASCVD score of 7.4%- lipid panel 08/2023: cholestero l-154, triglyceri kristen-145, HDL-41, LDL-87- ordered repeat levels Pt counselled on:- Eat a heart-heal thy diet - Choose healthy fats. Avoid saturated fats that are found primarily in red meat, funk, sausage, and full-fat dairy products. Advised to choose lean proteins like chicken, turkey, and fish when possible. Switch to low-fat or fat-free dairy. And use monounsatu rated fats like olive and canola oil for cooking. - Cut out the trans fats. Trans fats are found in fried food and processed foods, like cookies, crackers, and other snacks. - Eat more omega-3s. Counseled on eating more fish, including salmon, mackerel, delgado ,nuts and seeds, like walnuts and flax seeds. - Increase your fiber intake. By eating more oats, brain, fruits, beans, and vegetables , can lower your LDL cholestero l levels. - Eat more fruits and veggies. Obesity ca used by energy imbalance 548935733 E66.811 E66.09 Z68.32 - BMI of 32.0- Cut down on (limit) fast foods, sweets, and processed snack foods.- Limit alcohol intake to no more than 1- 2 drinks a day for men. One drink equals 12 oz of beer, 5 oz of wine, or 1 oz of hard liquor.- Keep a weight loss journal and keep track of the food and portions that you eat.- The exercise that you do- 4 times a week or 150 minutes cumulative of moderate exercise recommende d. Increased blood pressure 74429342 R03.0 - BP today elevated today at 140/68 and 138/83- will continue to monitor, if elevated at next visit will start medicine Viral scre ening status 710278363 Z11.59 Health Concerns Section Related Observation LastModified by Organization Detai ls LastModified Time None Recorded Concern Status LastModified by Organization Details LastModified Time None Recorded Advance Directives Directive N: Payers Encounter Date Sequence Insurance Name Policy Number Policy Mehta Covered Member ID Mehta Member ID Guarantor Name 08/24/2023 2 [place] [id number] Cynthia Frost Sariah [id number] Cynthia Rolle 08/24/2023 1 [place] Cynthia Rolle [id number] Cynthia Rolle 01/15/2024 2 [place] [id number] Cynthia Frost Sariah [id number] Cynthia Frenchoren 01/15/2024 1 [place] Cynthia Rolle [id number] Cynthia Rolle 05/12/2024 2 [place] [id number] Cynthia Frost Sariah [id number] Cynthia Rolle 05/12/2024 1 [place] Cynthia Rolle [id number] Cynthia Sariah 10/03/2024 2 [place] [id number] Cynthia Rolle [id number] Cynthia Rolle 10/03/2024 1 [place] Cynthia Rolle [id number] Cynthia Rolle 11/07/2024 2 [place] [id number] Cynthia Rolle [id number] Cynthia Rolle 11/07/2024 1 [place] [facility] G[facility] Cynthia Rolle [id number] Cynthia Rolle Notes Date Note Type Note Provider Name and Address Organization Details Recorded Time 08/24/2023 text/html Medicare Annual Wellness VisitReported bypatient.Diet and Nutrition:healthy diet; calcium+vitamin D+melatonin, flax seed oil, MMV Fracture Risk:no history of fractures Physical Activity:exercises on a regular basis; bikes-> 3-4 times a week, 45 mins Depression Risk:no history of depression; no history of mood disorders Orientation:no disorientation to time; no disorientation to date; no disorientation to place Concentration and Memory:no decreased concentrating ability; no memory lapses or loss; does not forget words Speech/Motor difficulties:no speech difficulties; no difficulty expressing formulated concepts; no difficulty with fine manipulative tasks; no difficulty writing/copying; no slowed reaction time; does not knock things over when trying to pick them up Hearing:no loss of hearing Vision:no vision problems Activities of Daily Living:able to bathe with limited or no assistance; able to contol urination and bowels; able to dress with limited or no assistance; able to feed self with limited or no assistance; able to get out of chair or bed with limited or no assistance; able to groom with limited or no assistance; able to toilet with limited or no assistance Instrumental Activities of Daily Living:able to do house work with limited or no assistance; able to grocery shop with limited or no assistance; able to manage medications with limited or no assistance; able to manage money with limited or no assistance; able to prepare meals with limited or no assistance; able to use the phone with limited or no assistance Falls Risk Assessment:no frequent falls while walking Home Safety:no unsafe crista hazzards; no unsafe stairs; no unsafe gas appliances; working smoke/CO detectors; wears protective head gear for biking/high velocity; use of seatbelts; no vision or hearing loss while driving; no fire arms; has hand bars in the bathroom/shower; good lighting in the home Medicare Prasad Rolle is a 68 year old F who presents to complete their Annual Wellness Visit. Visit Type: Initial How would you rate your health? Good Have you been discharged from the hospital recently? NoHave you been to the emergency room or urgent care recently? NoDo you have any significant previous hospital stays, injuries, or treatment? No Home Safety:Is the tub or shower floor slippery and do you need support? NoDo you need some support when you get in and out of the tub or from the toilet? No, however patient has install sturdy grab bars in the showerDo you have any small rugs or runners that slide or bunch up when you push them with your foot? NoAre there papers, books, towels, shoes, magazines, boxes, blankets, or other objects on the floor? No The patient does not have a history of falls. Oral Health: twice a yearEye Health: once a yearMotor Vehicle: Drives Do you wear a seatbelt when in a car? Yes Screening Tools:Were there any ADL or IADL deficiencies not linked to physical limitations? NoDuring the past 12 months, have you experienced confusion or memory loss that is happening more often or is getting worse? No Advance Directive: none on file YANIRA JO MD [address], [address], [facility] 08/24/2023 11:51:05 01/15/2024 text/html Cynthia whitfield is a 68 year old F who presented to the clinic for follow-up on her blood pressure. Pt was noted on her last visit her BP was higher than usual. Pt does not have a history of hypertension. She has no complaints at this time. YANIRA JO MD [address], [address], [facility] 01/15/2024 12:19:48 05/12/2024 text/html Cynthia whitfield is a 68 year old F who presented to the clinic for her sixth month follow-up visit. Pt has no complaints at this time. Pt mentions to MD that she will be undergoing fulgration and biospy of the anus on 06/03. Pt had three abnormal paps which is the reason for this surgery. Will be getting her pre-operative exam at [facility] on 05/21. Morenita zuñiga, [facility] 05/23/2024 08:58:44 10/03/2024 text/html Sinusitis/Allerg yRep orted bypatient.Location:m axillary Associated Symptoms:no nasal discharge; no fever; no weight loss; no hemoptysis; no hematemesis; no difficulty breathing; no feeling of strangulation; no nausea or vomiting; no headache; no sinus pain; no sore throat; no ear fullness; no nasal itching; no eye itching; no pain behind the eyes; no skin itching;facial pain bilaterally;constant ly clearing the throat Onset/Timing:abrupt onset Quality:minimal discomfort Duration:continuous Severity:does not limit daily activities Context:no recent upper respiratory infection; no recent sick contactsNotes:Has been present for less than one week. Not taking any OTC meds. Cynthia Rolle is a 69 year old F who presents to the clinic complaining of bilateral ringing in her ears. On further discussion patient mentions the ringing is mostly on the right side. Has been present for many years intermittently however since Aug 2024 it has become constant. Never seen a specialist for this and had a hearing test. Denies any weakness, dizziness/imbalance, headaches or ear drainage. YANIRA JO MD [address] [address], [place], [address], [facility] 10/03/2024 12:24:59 11/07/2024 text/html Medicare Annual Wellness VisitReported bypatient.Diet and Nutrition:healthy diet; calcium+vitamin D+melatonin, flax seed oil, MMV Fracture Risk:no history of fractures Physical Activity:exercises on a regular basis; bikes-> 2-3 times a week, [id number] Depression Risk:no history of depression; no history of mood disorders Orientation:no disorientation to time; no disorientation to date; no disorientation to place Concentration and Memory:no decreased concentrating ability; no memory lapses or loss; does not forget words Speech/Motor difficulties:no speech difficulties; no difficulty expressing formulated concepts; no difficulty with fine manipulative tasks; no difficulty writing/copying; no slowed reaction time; does not knock things over when trying to pick them up Hearing:no loss of hearing Vision:no vision problems Activities of Daily Living:able to bathe with limited or no assistance; able to contol urination and bowels; able to dress with limited or no assistance; able to feed self with limited or no assistance; able to get out of chair or bed with limited or no assistance; able to groom with limited or no assistance; able to toilet with limited or no assistance Instrumental Activities of Daily Living:able to do house work with limited or no assistance; able to grocery shop with limited or no assistance; able to manage medications with limited or no assistance; able to manage money with limited or no assistance; able to prepare meals with limited or no assistance; able to use the phone with limited or no assistance Falls Risk Assessment:no frequent falls while walking Home Safety:no unsafe crista hazzards; no unsafe stairs; no unsafe gas appliances; working smoke/CO detectors; wears protective head gear for biking/high velocity; use of seatbelts; no vision or hearing loss while driving; no fire arms; has hand bars in the bathroom/shower; good lighting in the home Medicare Prasad Rolle is a 69 year old F who presents to complete their Annual Wellness Visit. Pt tested negative for rectal biospy. Was having dysplasia on several paps. Next appoitment in December. Visit Type: annual How would you rate your health? Good Have you been discharged from the hospital recently? NoHave you been to the emergency room or urgent care recently? NoDo you have any significant previous hospital stays, injuries, or treatment? No Home Safety:Is the tub or shower floor slippery and do you need support? NoDo you need some support when you get in and out of the tub or from the toilet? No, however patient has install sturdy grab bars in the showerDo you have any small rugs or runners that slide or bunch up when you push them with your foot? NoAre there papers, books, towels, shoes, magazines, boxes, blankets, or other objects on the floor? No The patient does not have a history of falls. Oral Health: twice a yearEye Health: once a year (wears glasses)Motor Vehicle: Drives Do you wear a seatbelt when in a car? Yes Screening Tools:Were there any ADL or IADL deficiencies not linked to physical limitations? NoDuring the past 12 months, have you experienced confusion or memory loss that is happening more often or is getting worse? No Advance Directive: none on file YANIRA JO MD [address], [address], [facility] 11/07/2024 15:06:24 OBGyn Episode No OBEpisode recorded.
--- OUTSIDE RECORDS SUMMARY | 2024-11-12 11:00 | XMS_ITS | Patient Health Record ---
[facility] Address [address] [place] [address] Care Team Providers Care Stylist Apprentice Name Role Phone Lalitha Cuevas MD, Zuleyma Mitchell Primary Care Prov ider Unavailable Black, Danielle Unavailable [phone] Allergies Allergen (clinical drug ingredient) Drug/Non Drug Allergy documented on EMR Reaction Allergy Type Onset Date Status codeine Codeine nausea Drug Allergy Active nickel Nickel sensitive to metals Allergy Active Reason For Referral No Information Medications Medication SIG (Take, Route, Frequency, Duration) Notes Start Date End Date Status Flax Seeds Active Melatonin 3 MG Orally Activ e Aspirin Not-Taking Calcium Not-Taking Calcium Vhrrtiu-Rkf-Kvycafsy - as directed Orally Active Multivitamin Active Immunizations Vaccine Route Administration Date Status Comme nts COVID-19 Moderna Vaccine Unknown 04/26/2021 Administered First Dose:08/27/20 Second Dose:09/24/20 Social History Tobacco Use: Social History Observation Description Date Details (start date - stop date) Never Smoker NA - NA Tobacco Use/Smoking Question Answer Notes Are you a: nonsmoker Alcohol Screen Question Answer Notes Did you have a drink contain ing alcohol in the past year? Yes How often did you have a dri nk containing alcohol in the past year? Monthly or less (1 point) How often did you have 6 or more drinks on one occasion in the past year? Monthly (2 points) Points 3 Interpretation Positive Tobacco use other than smoking: Question Answer Notes Are you an other tobacco user? 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 confirmed Plan Of Treatment Pending Test Test Name Order Date 69418, J0702- Neuroma/Injection 07/14/19 04854, J0702- Neuroma/Injection 10/04/19 03564, J0702- Neuroma/Injection 11/15/19 Insurance Providers Payer Name Payer Address Payer Phone Subscriber Number Group Number Insured Name Patient Relationship to Insured Coverage Start Date Coverage End Date [facility] [address] [place] [address] [id number] Cynthia Agosto Self - patient is the insured Medical (General) History Medical History History ICD Code asthma Back,Hip,and Knee pain Cancer Sinus conditions Chicken pox Joint implants/screws Diverticulosis Surgical History Surgery Date(Month/Year) bilateral knee replacement 2008 basal cell carcinoma 06/2009 Squamous cell 07/2016 melanoma excision
--- OUTSIDE RECORDS SUMMARY | 2024-11-12 11:00 | XMS_ITS | Continuity of Care Document ---
Author Organization [facility], Main Office Address [address] [facility] [address] [place] [address] Care Team Providers Care Conflicts Analyst Name Role Phone EDILIA LIMON OTHER JASEN RODRIGUEZ Director Selection And Administration [phone] RONALD MOSELEY Deskidding Machine Operator YANIRA JO Primary Care Provider NEENA CHAPIN Cyber Incident Handler VIC TILLEY Oiler Bander [phone] Assessment No assessment recorded. Plan of Treatment Reminders Order Date Submit Date Provider Last Modified By Organization Details Last Modified Time Details Appointments FOLLOW UP 2024 01:30P M YANIRA JO MD Not available Not available Not available Lab Hepatitis C IgG Ab, qual, serum 2024 025 ISAIAH [facility] (Centralized Electronic Ordering - All Locations), Patient Can Go To The Location Of Their Choice, [address] 11/07/2024 15:06:09 lipid panel, serum 2024 025 ISAIAH [facility], [address] [place], [address], 11/07/2024 14:41:46 BMP, serum or plasma 2024 025 ISAIAH [facility], [address], [place], [address], 11/07/2024 14:41:46 CBC w/ auto diff 2024 025 ISAIAH [facility], [address] [place], [address], 11/07/2024 14:41:46 Referral nutrition ist/dieti laila referral 2024 Yulisa medina [facility], [address], [place], [address], 11/07/2024 14:52:37 Procedures None recorded. Surgeries None recorded. Imaging None recorded. Medication Orders None recorded. Patient TargetsNo targets recorded. 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 [facility] [address], [place], [address], 10/21/2024 10:55:35 Result Notes None recorded. Problems Name Problem SNOMED Code Status Onset Date Resolution Date Notes Provider Name and Address Organization Details Recorded Time Acute pharyngi tis [id number] Completed 201101/13/2014 IMPRESSI ON: RAPID STREP NEG, WILL SEND OUT AND INFORM PT IF POS. ADVISED RE REST, FLUIDS, WARM SALT WATER GARGLES, TEA W/HONEY, OTC ANALGESI CS. CALL FOR WORSENIN G/PRN.; RECORDED 02/07/20 12 1:13PM BY FLORECITA DEMPSEY/COURTNEY Noonan MA - [facility] 8 13:38:35 Acute sinusiti s [id number] Completed 201101/13/2014 RECORDED 06/14/20 12 8:47AM BY FEMI TY MA, ANNOTATI ON/ALYX ONTIVEROS Diallo Watson MA null, [facility] 8 13:38:24 Hemangio courtney [id number] Completed 201101/13/2014 RECORDED 06/14/20 12 8:48AM BY FEMI TY MA, ANNOTATI ON/ADDEN DUM Nicole Peter PA-C [address], [place], [address] , [facility] 6 14:12:35 Patient status finding [id number] Completed 201206/08/2014 RECORDED 02/07/20 13 10:03AM BY DIALLO WATSON, OFFICE VISIT Nicole Peter PA-C [address], [place], [address] , [facility] 6 14:12:35 Patient status finding [id number] Completed 201201/13/2014 RECORDED 07/09/19 13 9:25AM BY DIALLO WATSON, FLORECITA ON/ADDEN DUM Nicole Peter PA-C [address], [place], [address] , [facility] 6 14:12:35 Intrinsi c asthma [id number] Completed 200901/13/2014 RECORDED 04/22/20 10 4:09PM BY ROSY GARCIA MA, ANNOTATI ON/ADDEN DUM Nicole Peter PA-C [address], [place], [address] , [facility] 6 14:12:35 Asthma 029671151 Completed 200901/13/2014 RECORDED 04/22/20 10 4:09PM BY ROSY GARCIA MA, ANNOTATI ON/ADDEN DUM Zuleyma Alexa zuñiga, [facility] 0 11:43:05 Screenin g for malignan t neoplasm of breast Completed 200901/13/2014 DATE: 04/22/20 10; RECORDED 02/07/20 12 1:13PM BY FLORECITA DEMPSEY ON/ADDEN DUM [facility] 8 14:12:02 Screenin g for malignan t neoplasm of breast Completed 201208/08/2017 RECORDED 02/07/20 13 9:55AM BY DIALLO WATSON, OFFICE VISIT Zuleyma zuñiga [facility] 8 14:12:02 Screenin g for malignan t neoplasm of cervix Completed 201101/13/2014 RECORDED 02/07/20 12 1:13PM BY FLORECITA DEMPSEY ON/ADDEN WESTON ALTAMIRANOC [address] [facility] [address], [place], [address] , [facility] 6 14:12:35 Conjunct ivitis [id number] Completed 201201/13/2014 IMPRESSI ON: HAS H/O OCULAR ROSACEA, START POLYTRIM BUT ADVISE TO CALL OPTHALMO LOGIST IF NOT IMPROVIN G OR WORSENIN G OVER THE NEXT FEW DAYS.; RECORDED 02/07/20 13 9:51AM BY FLORECITA DEMPSEY ON/ADDEN DUM Nicole ALTAMIRANOC [address] [facility] [address], [place], [address] , [facility] 6 14:12:35 Cough 75872007 Completed 201201/13/2014 IMPRESSI ON: SUSPECT PNEUMONI A WITH FEVER AND CRACKLES . MUCINEX. WE WILL CALL HER IN 5 DAYS TO SEE HOW SHE IS DOING AND ORDER CXR IF NOT IMPROVIN G; RECORDED 07/09/19 13 9:25AM BY FLORECITA DEMPSEY ON/ALYX DUM Nicole ALTAMIRANOC [address] [facility] [address], [place], [address] , [facility] 6 14:12:35 Elevated blood-pr essure reading without diagnosi s of hyperten ryan [id number] Completed 201208/22/2019 RECORDED 02/07/20 13 9:55AM BY DIALLO WATSON, OFFICE VISIT Zuleyma zuñiga [facility] 0 11:43:11 Enthesop athy of knee 93783047 Completed 200701/13/2014 IMPRESSI ON: DX WITH OA, INJECTIO NS REALLY HELPED; RECORDED 07/01/20 08 7:26AM BY FLORECITA BROWN ON/ADDEN DUM Nicole Peter PA-C [address], [place], [address] , [facility] 6 14:12:35 Gastroes ophageal reflux disease 885139884 Completed 201208/22/2019 RECORDED 02/07/20 13 9:55AM BY DIALLO WATSON, OFFICE VISIT Zuleyma zuñiga [facility] 0 11:43:36 Extrinsi c asthma with asthma attack Completed 201208/08/2017 IMPRESSI ON: STABLE OFF INHALERS .; RECORDED 02/07/20 13 9:55AM BY DIALLO WATSON, OFFICE VISIT Zuleyma zuñiga [facility] 8 14:11:54 Malaise and fatigue 730300917 Completed 201101/13/2014 RECORDED 06/14/20 12 8:48AM BY FEMI TY MA, FLORECITA ON/ADDEN WESTON Peter PA-C [address], [place], [address] , [facility] 6 14:12:35 Influenz a vaccine needed [id number] 06 Completed 201201/13/2014 RECORDED 06/14/20 13 10:28AM BY DIALLO WATSON, NURSE VISIT Nicole Peter PA-C [address], [place], [address] , [facility] 6 14:12:35 Adult health examinat ion Completed 201101/13/2014 IMPRESSI ON: PAP, MAMMO AND COLONOSC OPY ARE UTD, PT IS EXERCISI NG, WOULD LIKE TO WALK MORE IF FEET DID NOT HURT,; RECORDED 06/14/20 12 8:48AM BY FEMI TY MA, TIMATI ON/ADDEN DUM Nicole ALTAMIRANOC [address] [facility] [address], [place], [address] , [facility] 6 14:12:35 Adult health examinat ion Completed 201206/08/2014 IMPRESSI ON: PAP, MAMMO AND COLONOSC OPY UTD, IS ON EXERCISE AND WEIGHT LOSS EATING PLAN, LOST 3.BS, DOIGN WELL; RECORDED 02/07/20 13 10:35AM BY ZULEYMA Rogers MD, OFFICE VISIT Nicole Peter PA-C [address] [facility] [address], [place], [address] , [facility] 6 14:12:35 General examinat ion of patient Completed 200701/13/2014 IMPRESSI ON: WILL CHECK ON LAST TETANUS IN SCHOOL RECORDS, THINKS IT IS LESS THAN 10 YEARS, WILL GET FLU SHOT, CONTINUE EXERCISE AND SET UP MAMMO, PT WILL SET UP COLONOSC OPY WHEN TURNS 50; RECORDED 05/29/20 08 3:47PM BY FLORECITA DEMPSEY ON/JV WESTON ALTAMIRANOC [address] [facility] [address], [place], [address] , [facility] 6 14:12:35 Calcanea l spur 83290694 Completed 201101/13/2014 RECORDED 06/14/20 12 8:47AM BY FEMI TY MA, TIMATI ON/ADDEN DUM Nicole ALTAMIRANOC [address] [facility] [address], [place], [address] , [facility] 6 14:12:35 Pure hypercho lesterol emia 924507103 Completed 201208/08/2017 IMPRESSI ON: CHECK FASTING NO VALUE ON FILE; RECORDED 02/07/20 13 9:55AM BY DIALLO WATSON, OFFICE VISIT [facility] 8 14:11:59 Procedur e on joint Completed 201206/08/2014 IMPRESSI ON: DOING WELL NO PAIN; RECORDED 02/07/20 13 10:36AM BY ZULEYMA Rogers MD, OFFICE VISIT Nicole Peter PA-C [address], [place], [address] , [facility] 6 14:12:35 Pain in eye 07863882 Completed 201101/13/2014 RECORDED 02/07/20 12 1:13PM BY DIALLO WATSON, ANNOTATI ON/ADDEN DUM Nicole Peter PA-C [address], [place], [address] , [facility] 6 14:12:35 Osteoart hritis 032245179 Completed 201208/24/2023 IMPRESSI ON: HX OF KNEE REPLACEM ENTS, NOW IN THUMBS; RECORDED 02/07/20 13 10:36AM BY ZULEYMA Rogers MD, OFFICE VISIT YANIRA JO MD [address] [facility] [address], [place], [address] , [facility] 4 10:40:06 Palpitat ions 13120418 Completed 201208/22/2019 IMPRESSI ON: JSUT STARTED THIS AFTERNOO N, NO DIZZINES S AND COME AND GO, NO CP OR SYNCOPE, BP A BIT UP BUT PT APPEARS ANXIOUS, CHECK LABS, REST, HYDRATE, BP A BIT UP, PT TO CHECK AT OTHER PLACES AND RETURN 6 WEEEKS FOR FOLLWOUP BP; RECORDED 02/07/20 13 9:55AM BY DIALLO WATSON, OFFICE VISIT Zuleyma zuñiga, [facility] 0 11:43:17 William 223640510 Active 2012 Valencia zuñiga, [facility] 0 15:44:34 Chronic sinusiti s 79482812 Completed 201201/13/2014 IMPRESSI ON: ENCOURAG E REST AND HYDRATIO N. RTC IF PERSISTE NT OR WORSENIN G SYMPTOMS .; RECORDED 02/07/20 13 9:51AM BY FLORECITA DEMPSEY ON/ALYX ALTAMIRANOC [address], [place], [address] , [facility] 6 14:12:35 Acute maxillar y sinusiti s 24179421 Completed 200701/13/2014 IMPRESSI ON: NO RESOLUTI ON AFTER 3 WEEKS, START AMOX, HOT SHOWERS; RECORDED 07/01/20 08 7:26AM BY FLORECITA BROWN ON/ALYX ALTAMIRANOC [address], [place], [address] , [facility] 6 14:12:35 Screenin g for malignan t neoplasm of colon Completed 201101/13/2014 RECORDED 02/07/20 12 1:13PM BY FLORECITA DEMPSEY ON/ALYX ALTAMIRANOC [address], [place], [address] , [facility] 6 14:12:35 Administ ration of diphther ia and tetanus vaccine Completed 201101/13/2014 RECORDED 06/14/20 12 8:48AM BY FEMI TY MA, FLORECITA ON/ALYX ALTAMIRANOC [address], [place], [address] , [facility] 6 14:12:35 Acute pharyngi tis 522229649 Completed 201102/09/2014 IMPRESSI ON: RAPID STREP NEG, WILL SEND OUT AND INFORM PT IF POS. ADVISED RE REST, FLUIDS, WARM SALT WATER GARGLES, TEA W/HONEY, OTC ANALGESI CS. CALL FOR WORSENIN G/PRN.; RECORDED 02/07/20 12 1:13PM BY FLORECITA DEMPSEY ON/ADDEN DUM COURTNEY Dempsey, [facility] 8 13:38:35 Acute sinusiti s 51158943 Completed 201102/09/2014 RECORDED 06/14/20 12 8:47AM BY FEMI TY MA, FLORECITA ON/ADDEN DUM COURTNEY Dempsey, [facility] 8 13:38:24 Hemangio dc 680850191 Completed 201102/09/2014 RECORDED 06/14/20 12 8:48AM BY FEMI TY MA, FLORECITA ON/ADDEN DUM Nicole Peter PA-C [address] [facility] [address], [place], [address] , [facility] 6 14:12:35 Intrinsi c asthma 630091963 Completed 200902/09/2014 RECORDED 04/22/20 10 4:09PM BY ROSY GARCIA MA, FLORECITA ON/ADDEN DUM Nicole Peter PA-C [address] [facility] [address], [place], [address] , [facility] 6 14:12:35 Asthma 272291763 Completed 200902/09/2014 RECORDED 04/22/20 10 4:09PM BY ROSY GARCIA MA, ANNOTATI ON/ADDEN DUM Zuleyma zuñiga, [facility] 0 11:43:05 Screenin g for malignan t neoplasm of breast Completed 200902/09/2014 DATE: 04/22/20 10; RECORDED 02/07/20 12 1:13PM BY FLORECITA DEMPSEY ON/ADDEN DUM Zuleyma zuñiga, [facility] 8 14:12:02 Screenin g for malignan t neoplasm of cervix Completed 201102/09/2014 RECORDED 02/07/20 12 1:13PM BY FLORECITA DEMPSEY ON/ADDEN DUM Nicoleсергей Leaden PA-C [address] [facility] [address], [place], [address] , [facility] 6 14:12:35 Conjunct ivitis 9719034 Completed 201202/09/2014 IMPRESSI ON: HAS H/O OCULAR ROSACEA, START POLYTRIM BUT ADVISE TO CALL OPTHALMO LOGIST IF NOT IMPROVIN G OR WORSENIN G OVER THE NEXT FEW DAYS.; RECORDED 02/07/20 13 9:51AM BY FLORECITA DEMPSEY ON/ADDVENANCIO ONTIVEROS Viktcass Leaden MARTINE-C [address] [facility] [address], [place], [address] , [facility] 6 14:12:35 Cough 44648838 Completed 201202/09/2014 IMPRESSI ON: SUSPECT PNEUMONI A WITH FEVER AND CRACKLES . MUCINEX. WE WILL CALL HER IN 5 DAYS TO SEE HOW SHE IS DOING AND ORDER CXR IF NOT IMPROVIN G; RECORDED 07/09/19 13 9:25AM BY FLORECITA DEMPSEY ON/ALYX Leaden MARTINE-C [address] [facility] [address], [place], [address] , [facility] 6 14:12:35 Enthesop athy of knee 03825543 Completed 200702/09/2014 IMPRESSI ON: DX WITH OA, INJECTIO NS REALLY HELPED; RECORDED 07/01/20 08 7:26AM BY FLORECITA BRONW ON/ALYX Leaden PA-C [address] [facility] [address], [place], [address] , [facility] 6 14:12:35 Malaise and fatigue 317149153 Completed 201102/09/2014 RECORDED 06/14/20 12 8:48AM BY FEMI TY MA, FLORECITA ON/ADDEN DUM Nicole ALTAMIRANOC [address], [place], [address] , [facility] 6 14:12:35 Influenz a vaccine needed 29198486955 06 Completed 201202/09/2014 RECORDED 06/14/20 13 10:28AM BY DIALLO WATSON, NURSE VISIT Nicole Peter PA-C [address], [place], [address] , [facility] 6 14:12:35 Adult health examinat ion Completed 201102/09/2014 IMPRESSI ON: PAP, MAMMO AND COLONOSC OPY ARE UTD, PT IS EXERCISI NG, WOULD LIKE TO WALK MORE IF FEET DID NOT HURT,; RECORDED 06/14/20 12 8:48AM BY FEMI TY MA, FLORECTIA ON/ADDEN DUM Nicole ALTAMIRANOC [address], [place], [address] , [facility] 6 14:12:35 General examinat ion of patient Completed 200702/09/2014 IMPRESSI ON: WILL CHECK ON LAST TETANUS IN SCHOOL RECORDS, THINKS IT IS LESS THAN 10 YEARS, WILL GET FLU SHOT, CONTINUE EXERCISE AND SET UP MAMMO, PT WILL SET UP COLONOSC OPY WHEN TURNS 50; RECORDED 05/29/20 08 3:47PM BY FLORECITA DEMPSEY ON/ADDEN DUM Nicole ALTAMIRANOC [address], [place], [address] , [facility] 6 14:12:35 Calcanea l spur 22761562 Completed 201102/09/2014 RECORDED 06/14/20 12 8:47AM BY FEMI TY MA, FLORECITA ON/ADDEN DUM Nicole FARLEY-C [address], [place], [address] , [facility] 6 14:12:35 Pain in eye 32845983 Completed 201102/09/2014 RECORDED 02/07/20 12 1:13PM BY FLORECITA DEMPSEY ON/ADDEN DUM Nicole FARLEY-C [address] [facility] [address], [place], [address] , [facility] 6 14:12:35 Chronic sinusiti s 58037317 Completed 201202/09/2014 IMPRESSI ON: ENCOURAG E REST AND HYDRATIO N. RTC IF PERSISTE NT OR WORSENIN G SYMPTOMS .; RECORDED 02/07/20 13 9:51AM BY FLORECITA DEMPSEY ON/ADDEN DUM Nicole FARLEY-C [address] [facility] [address], [place], [address] , [facility] 6 14:12:35 Acute maxillar y sinusiti s 10336757 Completed 200702/09/2014 IMPRESSI ON: NO RESOLUTI ON AFTER 3 WEEKS, START AMOX, HOT SHOWERS; RECORDED 07/01/20 08 7:26AM BY FLORECITA BROWN ON/ADDEN DUM Nicole FARLEY-C [address] [facility] [address], [place], [address] , [facility] 6 14:12:35 Screenin g for malignan t neoplasm of colon Completed 201102/09/2014 RECORDED 02/07/20 12 1:13PM BY FLORECITA DEMPSEY ON/ADDEN DUM Nicole FARLEY-C [address] [facility] [address], [place], [address] , [facility] 6 14:12:35 Administ ration of diphther ia and tetanus vaccine Completed 201102/09/2014 RECORDED 06/14/20 12 8:48AM BY FEMI TY MA, FLORECITA ON/ADDEN DUM Nicole FARLEY-C [address] [facility] [address], [facility] [place], [address] , [facility] 6 14:12:35 Asthma 831744418 Completed 08/22/2019 Zuleyma Glading-Di itzel zara, [facility] 0 11:43:05 Stomach cramps 20578791 Completed 08/08/2017 COURTNEY Dempsey [facility] 8 13:38:49 Acquired trigger finger 0871723 Completed 08/22/2019 [facility] 0 11:43:38 Acute pharyngi tis 418239228 Completed 08/08/2017 COURTNEY Dempsey [facility] 8 13:38:35 Viral conjunct ivitis 94763479 Completed 08/08/2017 COURTNEY Dempsey [facility] 8 13:38:46 Viral disease 54452917 Completed 08/08/2017 COURTNEY Dempsey [facility] 8 13:38:38 Acute sinusiti s 46799625 Completed 08/08/2017 COURTNEY Dempsey [facility] 8 13:38:24 Otitis media 13626090 Completed 08/08/2017 COURTNEY Dempsey [facility] 8 13:38:53 Vertigo 869264082 Completed 08/22/2019 Zuleyma Glading-Rylie itzel zara [facility] 0 11:43:26 Verruca plantari s 30992587 Completed 08/22/2019 Zuleyma Glading-Rylie itzel zara [facility] 0 11:43:28 Skin lesion 43990705 Completed 201708/22/2019 High Grade Squamous Intraepi thelial Lesion Zuleyma Glarosalie-Rylie itzel zara [facility] 0 11:43:21 Malignan t melanoma 346312120 Completed 201808/22/2019 Zuleyma Alexa itzel null, [facility] 0 11:44:04 History of malignan t melanoma of the skin 74430669042 8 Active 2019 Valencia Enriquez null, [facility] 0 15:44:35 Mild intermit tent asthma 110634178 Active 2019 Valencia Enriquez null, [facility] 0 15:44:35 Malignan t tumor of anus 238222478 Active 2019 [facility], [facility] 0 11:24:40 History of SARS-CoV -2 64839350631 7791054 Active 2021 Melissa Valera MA null, [facility] 2 11:02:49 Persiste nt cough 510367755 Completed 202108/23/2023 YANIRA JO MD [address], [place], [address] , [facility] 4 07:52:21 Recurren t pneumoni a 234591584 Completed 202108/23/2023 YANIRA JO MD [address], [place], [address] , [facility] 4 07:52:33 Osteopen ia 754546590 Active 2023 YANIRA JO MD [address], [place], [address] , [facility] 4 12:39:40 Subclini annabel hyperthy roidism 403729797 Active 2023 YANIRA JO MD [address], [place], [address] , [facility] 4 05:47:03 History of malignan t neoplasm of anus 93900651082 9105 Active 2023 Morenita zuñiga [facility] 4 08:58:36 Notes:Some problems listed i n Document: #[id number] could not be added to this patient's chart. Please review this document and add these problems to the patient's chart manually as needed. Problem Notes None recorded. Procedures Surgical History Date Name Laterality Status Provider Name and Address Organization Details Recorded Time 11/08/19 Advanced Care Planning completed YANIRA JO MD [address] [address], [place], [address], [facility] 11/06/2024 07:47:18 04/25/20 24 Most Recent Mammogram completed Isabelle Echols [facility] 04/25/2024 13:40:50 08/24/19 24 Advanced Care Planning completed YANIRA JO MD [address] [facility] [address] [facility], [place], [address], [facility] 08/23/2023 07:47:42 11/15/19 22 Mammogram Screening completed Rachna Nogueira [facility] 11/16/2021 10:06:09 07/02/19 22 Date of Last Pap Smear completed Diallo Watson MA [facility] 04/20/2022 10:40:41 07/07/19 20 Date of Last Colonoscopy completed Dianne Fuchs [facility] 07/07/2019 09:42:31 07/07/19 20 Colonoscopy completed Dianne Fuchs [facility] 07/07/2019 09:42:24 07/18/19 17 Consult w/med hlth care prof completed Noemi Sanchez [facility] 08/23/2016 14:22:14 08/31/19 14 Hearing And Speech Assistant Surgery completed Diallo Watson MA [facility] 04/20/2022 10:33:59 02/14/20 08 Most Recent Bone Density completed Taisha Moon [facility] 09/03/2015 13:50:10 06/01/20 07 Joint Replacement completed Diallo Watson MA [facility] 04/20/2022 10:33:59 12/30/18 88 Dilation and Curettage completed Diallo Watson MA [facility] 04/20/2022 10:33:59 10/30/18 64 Tonsillectomy completed Diallo Watson MA [facility] 04/20/2022 10:33:59 Cancer Surgery completed Taisha Moon [facility] 09/03/2015 13:50:33 Imaging Results None recorded. Procedure Notes None recorded. Medical Equipment None Reported. Allergies Allergen ID Allergen Name Allergen Category Reaction Reaction Severity Criticality Documentation Date Start Date Code Code System Note Provider Name and Address Organization Details Recorded Time 27173 [place] medicatio n edema rash severe severe Not available 08/08/2017 66873 69 RxNorm COURTNEY Dempsey [facility] 8 13:42:53 Medications Name Sig [...] 05/29 completed RECORDED 06/01/20 09 8:47AM BY ZULEYMA Rogers MD, MEDICATI ON AUTO-SELWYN CTIVATIO N;2PO [...] completed RECORDED 04/15/20 10 4:36PM BY COURTNEY CANAS, ANNOTATI ON/ALYX ONTIVEROS;THIS ORDER DISCONTI NUED PER MEDI-SPA N. Not Available Not Available Not Available amoxicill in 875 mg tablet BID 07/23 completed RECORDED 10/26/19 13 3:00PM BY MELISSA RED PA-C, MEDICATI ON AUTO-SELWYN CTIVATIO N; [...] 07/16 completed RECORDED 10/26/19 13 3:00PM BY MELISSA RED PA-C, MEDICATI ON AUTO-SELWYN CTIVATIO N; [...] completed RECORDED 07/09/19 13 9:07AM BY MARTINE MOORE, MEDICATI ON AUTO-SELWYN CTIVATIO N; Not Available [...] completed RECORDED 04/15/20 10 4:36PM BY COURTNEY CANAS, ANNOTATI ON/ALYX DUM; Not Available Not Available Not Available Flax Seed Oil 1,000 mg capsule Take 1 capsule every day by oral route. active Not Available Not Available No t Available codeine-g uaifenesi n oral syrup Q 6HRS PRN COUGH 04/15 completed RECORDED 04/15/20 10 4:35PM BY COURTNEY CANAS, ANNOTATI ON/ADDEN DUM; Not Available Not Available Not Available azelaic acid 15 % topical gel 08/22 completed Not Available Not Available Not Available Aspirin EC DAILY active RECORDED 02/07/20 13 9:56AM BY DIALLO WATSON, OFFICE VISIT; Not Available Not Available [...] QD active RECORDED 04/22/20 10 3:54PM BY ZULEYMA Rogers MD, ANNOTATI ON/ADDEN DUM; Not Available [...] Available Not Available Not Avai lable Afluria 8806-5812 (PF) 45 mcg (15 mcg x 3)/0.5 mL intramusc ular syringe active Not Available Not Available Not Available Flonase Allergy Relief 50 mcg/actua tion nasal spray,[employer] [place] 1 spray every day by intranas al [...] Not Available Vitals Date Recorded Body height Provider Name an d Address Organization Details Last Updated DateTime 11/07/2024 167.01 cm Melissa Tracy [facility] 11/07/2024 14:21:43 Date Recorded Body mass index (BMI) Body weight Heart rate Oxygen saturation Oxygen saturation in Arterial blood by Pulse oximetry Body temperature Systolic blood pressure Diastolic blood pressure Systolic blood pressure Diastolic blood pressure Provider Name and Address Organization Details Last Updated DateTime 5 32.5 kg/m2 54175.4 7 g 68 /min 98 % 98 % 97.3 [degF] 138 mm[Hg] 83 mm[Hg] 140 mm[Hg] 68 mm[Hg] YANIRA JO MD [address] [facility] [address], [place], [address], [facility] 5 14:48:19 Social History Question Answer Notes LastModified by Organizat ion Details LastModified Time Tobacco Smoking Status Never Smoker Diallo Watson MA [facility] 02/18/2014 09:43:11 Do You Have An Advance [...] Type Of Diet Are You Following? REGULAR [email or web address] Information not available 02/18/2014 Which Illicit Or [...] Have You Served In The ? No [email or web address] Information not available 12/30/2020 Have You Or Anyone In Your Household Had Any Of The Following Symptoms In The Last 14 Days: Sore Throat, Cough, Chills, Body Aches For Unknown Reasons, Shortness Of Breath For Unknown Reasons, Loss Of Smell, Loss Of Taste, Fever At Or Greater Than 100 Degrees Fahrenheit? No [email or web address] Information not available 12/30/2020 Are You Or Anyone In Your Household A Health Care Provider Or Emergency Responder? No [email or web address] Information not available 12/30/2020 To The Best Of Your Knowledge Have You Been In Close Proximity To Any Individual Who Tested Positive For COVID-19? No [email or web address] Information not available 12/30/2020 Have You Recently Traveled To A COVID-19 High Risk Area Or Gathering In The Last 10 Days? No [email or web address] Information not available 12/30/2020 Marital Status Informatio n not available 06/08/2022 What Was The Date Of Your Most Recent Tobacco Screening? 11/07/2024 Information not available 11/07/2024 Total Number Of Stairs In Home 10 Information not available 06/08/2022 How Many Children Do You Have? 4 [email or web address] Information not available 02/18/2014 Do You Use Protection During Sex? No [email or web address] Information not available 04/20/2022 Difficulty Reading? No Information not available 06/08/2022 What Is Your Relationship Status? Information not available 06/08/2022 Do You Use Your Seat Belt Or Car Seat Routinely? Yes [email or web address] Information not available 04/20/2022 Seat Belts Used Routinely Yes Information not available 06/08/2022 Are You Sexually Active? Yes Information not available 09/03/2015 Smoke Alarm In Home Yes Information not available 06/08/2022 Do You Have Smoke And Carbon Monoxide Detectors In Your Home? Yes [email or web address] Information not available 04/20/2022 At What Age [...] 06/08/2022 Do You Use Sunscreen Routinely? Yes [email or web address] Information not available 02/18/2014 How Many Years [...] is your level of alcohol consumption? Occasional [email or web address] Information not available 02/18/2014 Do you or have you ever used smokeless tobacco? Never used smokeless tobacco Information not available 12/17/2019 Are you currently employed? No Information not available 08/24/2023 [address]iculty driving at night? No Information no t available 06/08/2022 Are you able to walk? YESWOREST Information not available 06/08/2022 Are you able to care for yourself? Yes [email or web address] Information not available 02/18/2014 What is your occupation? Retired [email or web address] Information not available 04/20/2022 Do you have difficulty dressing or bathing? No Information not available 06/08/2022 Do you or have you ever used e-cigarettes or vape? Never used electronic cigarettes Information not available 06/08/2022 What is your exercise level? Moderate [email or web address] Information not available 02/18/2014 Mental Status Question Answer Note LastModified by Organization D etails LastModified Time Do you have difficulty concentrating, remembering or making decisions? No Information no t available 06/08/2022 Family History Relationship Description Onset Age of this Age Resolved Age Notes LastModified by Organization Details LastModified Time Father Malignant neoplasm of lung [email or web address] Not available 12/16 14:29:42 Sister Diabetes mellitus [email or web address] s Not available 11/10/2015 14:14:20 Mother Dementia Not availab le 04/20/2022 10:33:33 Son Allergy [email or web address] Not availabl e 04/20/2022 10:33:33 Son Asthma [email or web address] Not available 04/20/2022 10:33:33 Unspecified Relation Attention deficit hyperactivit y disorder [email or web address] Not available 04/02 10:33:33 Notes:No FH of colon or malini st cancer Medical History Condition Response Coronary Artery Disease N Other N Gout N Kidney Stones N Blood Diseases N Hyperthyroidism N Breast Cancer N mrsa exposure N Hypothyroidism N Depression N COPD N Lung Disease N Developmental or Behavioral Disorders N Defects or Inherited Disease N Breast Problem N Anesthesia Complications N Headaches/Migraines N Varicose Veins Y Anxiety Disorder N Muscle, Joint, or Bone Problems N Obesity Y Vision or Eye Problems N Arthritis Y Head Injury/Concussion N Infertility N Polyps N Mental Disorder N Congenital Anomalies N Acid Reflux (GERD) N Cancer Y Stroke N ADHD N Endometriosis N High Cholesterol N Liver Disease N Headaches N Fibromyalgia N Kidney Disease N Heart Problems N Ear or Hearing Problems N Hospitalizations N Thyroid Problems N GI Problems N Developmental Delay N Acne N Eating Disorder N Skin Problems Y Anemia Y Constipation N Bladder Problems N Mental Illness N Diabetes N Ovarian Cancer N Bedwetting N Blood Transfusions N Heart Problems/Murmur N Seizures/Epilepsy N Tuberculosis N AIDS/HIV N Congestive Heart Failure (CHF) N Eczema N Abuse/Domestic Violence N Diverticulitis N Asthma Y Allergies N Reflux/GERD N Hepatitis N Heart Disease N Pulmonary Embolism N Hypertension N Chicken Pox Y Autism Spectrum Disorder (ASD) N Osteoporosis N Gynecological History Statement/Question Response STIs/STDs N [...] Immunizations Vaccine Type Date Status Note Provider Leandro mondragon and Address Organization Details Recorded Time influenza, unspecified formulation 7 completed Valencia zuñiga [place] - [facility] 12/17/2019 15:44:30 COVID-19, mRNA, LNP-S, PF, 100 mcg/0.5mL dose or 50 mcg/0.25mL dose 1 completed COURTNEY Dempsey [facility] 04/20/2022 10:32:58 COVID-19, mRNA, LNP-S, PF, 100 mcg/0.5mL dose or 50 mcg/0.25mL dose 1 completed Diallo COURTNEY Watson [facility] 04/20/2022 10:32:58 Influenza, MDCK, quadrivalent, PF 8 completed Diallo COURTNEY Watson [facility] 04/20/2022 10:32:58 COVID-19, mRNA, LNP-S, PF, 100 mcg/0.5mL dose or 50 mcg/0.25mL dose 2 completed Diallo PelayoCOURTNEY cardona [facility] 04/20/2022 10:32:58 Influenza, split virus, quadrivalent, PF 0 completed Diallo WatsonCOURTNEY [facility] 04/20/2022 10:32:58 COVID-19, mRNA, LNP-S, PF, 100 mcg/0.5mL dose or 50 mcg/0.25mL dose 1 completed Diallo PelayoCOURTNEY cardona [facility] 04/20/2022 10:32:58 Influenza, split virus, quadrivalent, PF 9 completed Diallo PelayoCOURTNEY cardona [facility] 04/20/2022 10:32:58 Influenza, split virus, quadrivalent, PF 1 completed Diallo PelayoCOURTNEY cardona [facility] 04/20/2022 10:32:58 Influenza, split virus, quadrivalent, PF 2 completed Diallo Watson COURTNEY zuñiga [facility] 04/20/2022 10:33:23 Td (adult), 2 Lf tetanus toxoid, preservative free, adsorbed 2 completed COURTNEY Valle [facility] 05/05/2022 10:59:56 COVID-19, mRNA, LNP-S, bivalent, PF, 50 mcg/0.5 mL or 25mcg/0.25 mL dose 2 completed COURTNEY Dempsey, [facility] 07/24/2022 14:03:51 Pneumococcal conjugate PCV20, polysaccharide [id number] conjugate, adjuvant, PF 3 [facility] 09:41:14 COVID-19, mRNA, LNP-S, bivalent, PF, 50 mcg/0.5 mL or 25mcg/0.25 mL dose 3 [facility]10[facility] 09:41:14 zoster recombinant 4 [facility] 10:18:35 zoster recombinant 3 completed COURTNEY Valle, [facility] 08/24/2023 10:18:36 Influenza, adjuvanted, quadrivalent, PF 3 [facility] 10:18:36 RSV, recombinant, protein subunit RSVpreF, adjuvant reconstituted, 0.5 mL, PF 3 [facility] 10:18:36 COVID-19, mRNA, LNP-S, PF, 50 mcg/0.5 mL 3 [facility] 08/24/2023 10:18:36 Influenza, high-dose, trivalent, PF 4 [facility] 05/12/2024 09:21:49 COVID-19, mRNA, LNP-S, PF, keo-sucrose, 30 mcg/0.3 mL 5 completed COURTNEY Bueno, [facility] 10/03/2024 10:43:21 Influenza, split virus, trivalent, preservative 8 completed Valencia Enriquez zara, [facility] 12/17/2019 15:44:30 Influenza, split virus, trivalent, preservative 9 completed Valencia zuñiga [facility] 12/17/2019 15:44:30 Influenza, split virus, trivalent, preservative 0 completed Valencialeonard zuñiga, [facility] 12/17/2019 15:44:30 Tdap 2 completed Valencialeonard zuñiga [facility] 12/17/2019 15:44:30 influenza, seasonal, intradermal, preservative free 3 completed Valencia zuñiga [facility] 12/17/2019 15:44:30 Past Encounters Encounter ID Performer Location Encounter Start Date Encounter Closed Date Diagnosis/Indication Diagnosis SNOMED-CT Code Diagnosis ICD10 Code Diagnosis Note [id number] YANIRA JO MD Main Office [address] [facility] [place] [address] 11/07/2024 14:03:46 11/07/2024 14:52:18 Advance directive discussed with patient 915404678 Z71.89 - discussed HPC and POLTS Tinnitus 93320159 H93.11 - chronic but worsening, now constant in nature- bilateral but worse on the right side- pt referred to hearing test- MRI of the brain and ear canal done on 10/15/2024 was normal- pt also referred to ENT for further evaluation , awaiting appoitment Subclinica l hyperthyroidism 485489083 E05.90 - TSH-2.15, fT4-1.1 (done by endo)> orders have been placed for recheck -> is the same will reduce to methimazol e to 2.5- pt is following with endo, last seen on 09/24/2024- c/w methimazol e 5mg- positive TPO, thyroglobu zelda antibody Osteopenia 001960025 M85 .80 - noted on bone density of 09/18/2023 at the femoral neck- pt counselled on weight bearing exercises- c/w vitamin D and calcium History of malignant melanoma of the skin 8969329723 08 Z85.820 - was located on the rigth arm- pt wears suncreen and wears protected clothing- pt follows with dermatolog y, every 4 months History of malignant neoplasm of anus 4330719444 98777 Z85.048 - hx of high grade dysplasia of anal margin, clear margins- was seen by colorectal surgeon in 06/2018 who stated patient no further interventi on was needed- pt did undergo surgery in the past- pt gets anal pap every three months -> pt had three abnormal paps- underwent biospy and fulgaratio n in 06/03/2024 -> normal Mild inter mittent asthma 080631406 J45.20 - c/w wixela 1 puff BID- c/w albuteral inhaler as needed General ex amination of patient 994949774 Z00.00 Health Maintenanc e FemaleA) Patient was [...] or sooner if any acute complaints Fatigue 92954179 R53.83 Z00.00 Hyperlipidemia 33222024 E78.5 Z00.00 - ASCVD score of 7.4%- lipid panel 08/2023: cholestero l-154, triglyceri kristen-145, HDL-41, LDL-87- ordered repeat levels Pt counselled on:- Eat a heart-heal thy diet - Choose healthy fats. Avoid saturated fats that are found primarily in red meat, fukn, sausage, and full-fat dairy products. Advised to [...] veggies. Obesity ca used by energy imbalance 930554121 E66.811 E66.09 Z68.32 - BMI of 32.0- [...] moderate exercise recommende d. Increased blood pressure 84795554 R03.0 - BP today elevated today at 140/68 and 138/83- will continue to monitor, if elevated at next visit will start medicine Viral scre ening status [id number] Z11.59 Health Concerns Section Related Observation LastModified by Organization Detai ls LastModified Time None Recorded Concern Status LastModified by Organization Details LastModified Time None Recorded Payers Encounter Date Sequence Insurance Name Policy Number Policy Mehta Covered Member ID Mehta Member ID Guarantor Name 11/07/2024 2 [place]: [place] (MEDICARE SUPPLEMENT) [id number] Cynthia Rolle [id number] Cynthia Rolle 11/07/2024 1 MEDICARE B-[place]: [facility] Cynthia Rolle [id number] Cynthia Rolle Notes Date Note Type Note Provider Name and Address Organization Details Recorded Time 11/07/2024 text/html Medicare Annual Wellness VisitReported bypatient.Diet and Nutrition:healthy diet; calcium+vitamin D+melatonin, flax seed oil, MMV Fracture Risk:no history of fractures Physical Activity:exercises on a regular basis; bikes-> 2-3 times a week, [id number] Depression Risk:no history of depression; no history [...] bathroom/shower; good lighting in the home Medicare visitCynthia Rolle is a 69 year old F [...] Directive: none on file YANIRA JO MD [address] [address], [place], [address], [facility] 11/07/2024 15:06:24 OBGyn Episode No OBEpisode recorded.
--- OUTSIDE RECORDS SUMMARY | 2024-11-12 11:01 | XMS_ITS | Continuity of Care Document ---
Author Organization [facility] Address [address] [place] [phone] Phone Care Team Providers Care Rayon Winder Name Role Phone Thierno Valdes Unavailable Unavailable Allergies, Adverse Reactions, Alerts Substance Reaction Status Criticality No Known Allergies Active No Inform ation Procedures Procedure Date Office/Outpt E&M Established 15 Mins Aug Duplex Scan-extrem Veins; Uni/ Duplex Scan-extrem Veins; Uni/ 23 Ultrason Guidan Needle Bx-rad 3 Inj Scleros Solut; Mx Veins 1 3 Punct Aspir Absces/hemat/bulla 23 Office/Outpt E&M Established 15 Mins Jul Duplex Scan-extrem Veins; Comp Phleb Veins - Extrem - To Phleb Veins - Extrem - To Phleb Veins - Extrem - To 20 Phleb Veins - Extrem - To 20 Office/Oupt E&M New Pt 30 Mins Duplex Scan-extrem Veins; Comp Advance Directives Directive Yes / No Effective Date File Name No Information Encounters Encounter Description Practice Location Reason(s) For Visit Diagnoses Date Provider Providers Copied on Encounter Office/Outpt E&M Established 15 Mins [facility], [address], [place], [place], [id number], tel:[phone] [place] - [facility] Varicose veins of left lower extremities w oth complicationsLocal ized edema 3 Keisha Thierno. [address], [address], [place], [address], [place]. tel: [phone] Referring Provider: LIAM COLES MD, [address] [facility], [facility] [place], [address]. tel:[phone] [facility], [address] [facility], [place], [place], [id number], [place] [phone] [place] - [place] - [facility] Chronic venous hypertension w oth comp of l low extrem 3 Keisha Thierno. [address], [address], [place], [address], [place]. tel: [phone] Referring Provider: LIAM COLES MD, [address] [facility], [facility] [place], [address]. tel:[phone] [facility], [address] [place], [place] [address] [facility], [place], [place], [id number], [place] tel:[phone] VR - [place] - [facility] Encntr for f/u exam aft trtmt for cond oth than malig neoplmChronic venous hypertension w oth comp of l low extrem 3 Keisha Thierno. [address], [address], [place], [address], [place]. tel:[phone] Referring Provider: LIAM COLES MD, [address] [facility], [facility] [place], [address]. tel:[phone] [facility] [place] [facility], [address] [facility], [place], [place], [id number], [place] tel:[phone] [place] - [place] - [place] Varicose veins of left lower extremities w oth complications 3 Keisha Thierno. [address], [address], [place], [address], [place]. tel:[phone] Referring Provider: LIAM COLES MD, [address] [facility], [place], [address]. tel:[phone] Office/Outpt E&M Established 15 Mins [facility] [place] [facility], [address] [place] [address], [place], [place], [id number], [place] tel:[phone] VR - [place] - [place] Localized edemaVenous insufficiency (chronic) (peripheral) 3 Keisha Thierno. [address], [address], [place], [address], [place]. tel:[phone] Referring Provider: LIAM COLES MD, [address] [facility], [place], [address]. tel:[phone] [facility], [address] [place] [address], [place], [place], [id number], [place] tel:[phone] VR - [place] - [place] Varicose veins of bilateral lower extremities with pain 3 Keisha Thierno. [address], [address], [place], [address], [place]. [phone] Referring Provider: LIAM COLES MD, [address] [facility], [place], [address]. tel:[phone] [facility] [place] [facility], [address] [facility], [place], [place], [id number], [place] tel:[phone] VR - [place] - [place] Varicose veins of left lower extremities w oth complications 2 Keisha Thierno. [address], [address], [place], [address], [place]. [phone] Referring Provider: LIAM COLES MD, [address] [facility], [place], [address]. tel:[phone] [facility] [place] [facility], [address] [place] [address], [id number], [place] tel:[phone] VR - [place] - [place] Varicose veins of right low extrm w oth complications 2 Keisha Thierno. [address], [address], [place], [address], [place]. tel: [phone] Referring Provider: LIAM COLES MD, [address] [facility], [facility] [place], [address]. tel:[phone] [facility], [address] [place] [address], [id number], [place] tel:[phone] VR - [place] - [place] Varicose veins of left lower extremities w oth complications 2 Keisha Thierno. [address], [address], [place], [address], [place]. tel:[phone] Referring Provider: LIAM COLES MD, [address] [facility], [facility] [place], [address]. tel:[phone] [facility], [address] [place] [address], [place], [place], [id number], [place] tel:[phone] VR - [place] - [place] Varicose veins of right low extrm w oth complications 2 Keisha Thierno. [address], [address], [place], [address], [place]. tel:[phone] Referring Provider: LIAM COLES MD, [address] [facility], [facility] [place], [address]. tel:[phone] Office/Oupt E&M New Pt 30 Mins [facility], [address] [place] [address], [place], [place], [id number], [place] tel:[phone] VR - [place] - [place] Body mass index (BMI) 27.0-27.9, adultVaricose veins of bilateral lower extremities with painVenous insufficiency (chronic) (peripheral) Sep- 2 Keisharobinson Villarrealo. [address], [address], [place], [address], [place]. [phone] Referring Provider: LIAM COLES MD, [address] [place], [address]. tel:[phone] [facility], [address] [place] [address], [id number], [place] tel:[phone] VR - [place] - [place] Varicose veins of bilateral lower extremities with pain Sep- 2 Keisha Villarrealo. [address], [address], [place], [address], [place]. [phone] Referring Provider: LIAM COLES MD, [address] [place], [address]. tel:[phone] Family History Family Member Type Diagnosis Age At Onset No Information Payers Payer name Insurance type Covered alliance party ID Authoriza steffi(s) Medicare [place] MB [id number] [place] [id number] Social History Type Description Quantity Date Captured Comments Alcohol Use Details Unknown Caffeine Use Details Unknown Tobacco Use Status No Information Smoking Status Never Smoker Non-Smoking Tobacco Use Details : No Details Available : No Details Available Sex Female Vital Signs Date / Time: Height Weight BMI Pulse Rate Blood Pressure Temperature Respiratory Rate Body Surface Area Head Circumference Head Circ. Percentile Wt./Jude. Percentile BMI percentile Pulse Ox Inhaled Ox 77.110 kg (170.00 lbs) 27.4 4 kg/m eter (2) 128/70 mm[Hg] Chief Complaint And Reason For Visit No Information Reason For Referral Reason For Referral No Information Plan Of Treatment Date Type Action Status Goal Diet education completed Goal Diet education completed Goal Diet education completed Referral Ordered: Weight management: Referral to physician timeframe: 3 Months (related to Body mass index (BMI) 27.0-27.9, adult) ordered Referral Ordered: Weight management: Referral to physician timeframe: 3 Months (related to Body mass index (BMI) 27.0-27.9, adult) ordered Referral Ordered: Duplex Scan-extrem Veins; Comp Bilateral leg ordered History Of Present Illness Encounter Date Complaint History Of Prese nt Illness No Information Functional Status Date Functional Assessmen t No Information Instructions Date Instruction Additional Infor sammyklaus Diet education Related to Body mass index (BMI) 27.0-27.9, adult Giving Encouragement to exercise Related to Body mass index (BMI) 27.0-27.9, adult Lifestyle education Related to B jose mass index (BMI) 27.0-27.9, adult Patient education booklet given Related to Varicose veins of left lower extremities w oth complications Pre and post instruc tions reviewed and provided Related to Varicose veins of left lower extremities w oth complications Diet education Related to Body mass index (BMI) 27.0-27.9, adult Giving Encouragement to exercise Related to Body mass index (BMI) 27.0-27.9, adult Lifestyle education Related to B jose mass index (BMI) 27.0-27.9, adult Patient education booklet given Related to Localized edema Pre and post instruc tions reviewed and provided Related to Localized edema Giving Encouragement to Exercise Related to Body mass index [BMI] 27.0-27.9, adult Diet education Related to Body mass index [BMI] 27.0-27.9, adult Patient education booklet given Related to V V w/ Other Complctns (PAIN); BILAT Pre and post instruc tions reviewed and provided Related to V V w/ Other Complctns (PAIN); BILAT Assessments Type Assessment Date No Information Patient Care Teams Name Effective Dates (start - stop) Status Members No Information
== END 2024-11-12 10:05 | disposition home or self-care (01) ==
LOC: HO.SH 10:04
PROVIDERS: Visit Provider Student in an Organized Health Care Education/Training Program
DX: Z01.118 Encounter for examination of ears and hearing with other abnormal findings (principal); H90.3 Sensorineural hearing loss, bilateral
CPT/HCPCS: 92557; 92567